=== PATIENT | male | born 1955 | race Caucasian/White ===

== ENCOUNTER → 2020-01-25 | Outpatient (CLI) | payer BC ==
--- NOTE | 2020-01-25 14:01 | US ---
EXAMINATION TYPE: US venous doppler duplex LE LT DATE OF EXAM: 01/25/2020 1:20 PM COMPARISON: NONE CLINICAL HISTORY: L97.222 Non-pressure chronic ulcer of left calf wi. Non-healing wounds bilateral lo wer legs SIDE PERFORMED: Bilateral TECHNIQUE: The lower extremity deep venous system is examined utilizing real time linear array sonog maricarmen with graded compression, doppler sonography and color-flow sonography. VESSELS IMAGED: External Iliac Vein (EIV) Common Femoral Vein Deep Femoral Vein Greater Saphenous Vein * Femoral Vein Popliteal Vein Small Saphenous Vein * Proximal Calf Veins (* superficial vessels) Right Leg: Negative for DVT Left Leg: Negative for DVT Grayscale, color doppler, spectral doppler imaging performed of the deep veins of the bilateral lower extremities. There is normal flow, compressibility, vascular waveforms. IMPRESSION: No ultrasound evidence for acute DVT in either lower extremity.
--- NOTE | 2020-01-26 10:26 | P.ARTDOP ---
Arterial Doppler LOWER EXTREMITY ARTERIAL DOPPLER: DATE OF SERVICE: 01/25/2020 Reason for study: Nonhealing leg ulcers bilaterally.. Doppler waveforms: Multiphasic bilaterally throughout. Pulse volume recording: []. Pressure gradients: None. Ankle-brachial indices: Greater than 1 bilaterally. Toe brachial indices: 0.71 on the right, 0.76 on the left Impression: Normal study.
== END | disposition home or self-care (01) ==
LOC: RADUSWWP 12:45
PROVIDERS: ATTEND Thoracic Surgery (Cardiothoracic Vascular Surgery)
DX: S81.811S Laceration without foreign body, right lower leg, sequela (principal); S81.812S Laceration without foreign body, left lower leg, sequela; T79.A22S Traumatic compartment syndrome of left lower extremity, sequela; T79.A21S Traumatic compartment syndrome of right lower extremity, sequela; L97.222 Non-pressure chronic ulcer of left calf with fat layer exposed; L97.221 Non-pressure chronic ulcer of left calf limited to breakdown of skin
CPT/HCPCS: 93922; 93970

== ENCOUNTER → 2020-03-13 | Outpatient (CLI) | payer BC ==
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
== END | disposition home or self-care (01) ==
LOC: RADUSWWP 10:55
PROVIDERS: ATTEND Thoracic Surgery (Cardiothoracic Vascular Surgery)
DX: L97.222 Non-pressure chronic ulcer of left calf with fat layer exposed (principal)

== ENCOUNTER 2020-08-28 13:49 | Inpatient (IN) | payer BC ==
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
[2020-08-28] MEDS ORDERED: VANCOMYCIN IV PER PHARMACY 1 EACH MISC MISCELLANE PRN (15:07)
[2020-08-28] MEDS ORDERED: HYDROmorphone 1 MG/ML 1 ML SYRINGE IVP STA (15:07)
[2020-08-28] MEDS ORDERED: SODIUM CHLORIDE 0.9% 1,000 ML IV STA ×2 (15:07→16:28)
[2020-08-28] MEDS ORDERED: HYDROmorphone 1 MG/ML 1 ML SYRINGE IVP PRN (15:07)
[2020-08-28] MEDS ORDERED: cefTRIAXone IN SWFI 1,000 MG/10 ML SYRINGE IVP STA (15:07)
[2020-08-28] MEDS ORDERED: VANCOMYCIN 2,000 MG in SODIUM CHLORIDE 0.9% 500 ML 500 ML IVPB STA (15:14)
[2020-08-28] MEDS ORDERED: VANCOMYCIN 2,000 MG in SODIUM CHLORIDE 0.9% 500 ML 500 ML IVPB SCH (15:15)
--- NOTE | 2020-08-28 15:16 | US ---
EXAMINATION TYPE: US venous doppler duplex LE RT DATE OF EXAM: 08/28/2020 3:04 PM COMPARISON: 01/25/2020 CLINICAL HISTORY: 65-year-old male DVT, right leg pain x couple months, patient on 2 blood thinners SIDE PERFORMED: Right TECHNIQUE: The lower extremity deep venous system is examined utilizing real time linear array sonog maricarmen with graded compression, doppler sonography and color-flow sonography. FINDINGS: VESSELS IMAGED: External Iliac Vein (EIV) Common Femoral Vein Deep Femoral Vein Greater Saphenous Vein * Femoral Vein Popliteal Vein Small Saphenous Vein * Proximal Calf Veins (* superficial vessels) Right Leg: Appears negative for DVT. Additional targeted scanning at the area of concern shows prominent subcutaneous edema. IMPRESSION: 1. No evidence for DVT within the right lower extremity imaged from the groin to the upper calf. 2. Additional targeted scanning along the right calf shows prominent subcutaneous edema.
[2020-08-28 15:44] LABS: Basophils % (A) 1 %; Eosinophils # (A) 0.2 k/uL (0-0.7); Eosinophils % (A) 2 %; HCT 46.6 % (39.0-53.0); Lymphocytes # (A) 1.2 k/uL (1.0-4.8); Lymphocytes % (A) 19 %; MCH 29.5 pg (25.0-35.0); MCHC 32.2 g/dL (31.0-37.0); MCV 91.8 fL (80.0-100.0); Mean Platelet Volume 7.4; Monocytes # (A) 0.5 k/uL (0-1.0); Monocytes % (A) 7 %; Neutrophils # (A) 4.6 k/uL (1.3-7.7); Neutrophils % (A) 69 %; Platelet Count 257 k/uL (150-450); RBC 5.08 m/uL (4.30-5.90); RDW 14.4 % (11.5-15.5); WBC 6.6 k/uL (3.8-10.6)
[2020-08-28 15:58] LABS: ALT 36 U/L (4-49); AST 40 U/L (17-59); African American GFR (CKD) >90 (>60 ml/min/1.73 sqM); Albumin 4.6 g/dL (3.5-5.0); Alkaline Phosphatase 44 U/L (38-126); Anion Gap 11 mmol/L; Blood Urea Nitrogen 16 mg/dL (9-20); Carbon Dioxide 24 mmol/L (22-30); Chloride 107 mmol/L (98-107); Creatine Kinase 121 U/L (55-170); Glucose 110 mg/dL (74-99); Magnesium 1.9 mg/dL (1.6-2.3); Non-African American GFR(CKD) >90 (>60 ml/min/1.73 sqM); Phosphorus 3.9 mg/dL (2.5-4.5); Potassium 3.7 mmol/L (3.5-5.1); Sodium 142 mmol/L (137-145); Total Bilirubin 0.4 mg/dL (0.2-1.3); Total Protein 8.1 g/dL (6.3-8.2)
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
[2020-08-28 18:00] LABS: Appearance,Urine Clear (Clear); Bilirubin,Urine Negative (Negative); Blood,Urine Negative (Negative); Color,Urine Yellow; Glucose,Urine (UA) Negative (Negative); Ketones,Urine Negative (Negative); Leukocyte Esterase,Urine Negative (Negative); Nitrite,Urine Negative (Negative); PH, Urine 5.5 (5.0-8.0); Protein,Urine Negative (Negative); Specific Gravity,Urine 1.039 (1.001-1.035); Urobilinogen,Urine <2.0 mg/dL (<2.0)
[2020-08-29] MEDS: RIVAROXABAN 20 MG TAB PO SCH ×2 (00:07→21:22)
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
[2020-08-29] MEDS ORDERED: METOPROLOL TARTRATE 50 MG TAB PO STA (00:14)
[2020-08-29] MEDS ORDERED: FENOFIBRATE 160 MG TAB PO STA (00:14)
[2020-08-29] MEDS: VANCOMYCIN 2,250 MG in SODIUM CHLORIDE 0.9% 500 ML 500 ML IVPB SCH ×2 (02:31→13:55)
[2020-08-29] MEDS: FOLIC ACID 1 MG TAB PO SCH (07:18)
[2020-08-29] MEDS: CLOPIDOGREL 75 MG TAB PO SCH (07:18)
[2020-08-29] MEDS: amLODIPine 10 MG TAB PO SCH (07:18)
[2020-08-29] MEDS: FUROSEMIDE 40 MG TAB PO SCH (07:18)
[2020-08-29] MEDS: lisinopriL 5 MG TAB PO SCH (07:19)
[2020-08-29] MEDS: METOPROLOL TARTRATE 50 MG TAB PO SCH ×2 (07:19→21:17)
[2020-08-29 09:15] LABS: African American GFR (CKD) 110.2 (60.0-200.0); Non-African American GFR(CKD) 95.1 (60.0-200.0)
[2020-08-29] MEDS ORDERED: RX INFO: IV CONTRAST WAS GIVEN 1 EACH MISC MISCELLANE PRN (12:32)
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
--- NOTE | 2020-08-29 14:14 | P.CONS ---
History of Present Illness - Reason for Consult Consult date: 08/29/20 wound care - History of Present Illness This is a 65-year-old patient who is known to the wound care center who previously had compartmental syndrome with fasciotomy. During treatment patient had a negative pressure wound VAC. At this time patient's skin is epithelialized with no open ulcerations. Review of Systems Review Of Systems: Constitutional: No fever, no chills, no night sweats. No weight change. No weakness, fatigue or lethargy. No daytime sleepiness. Integumentary:no wounds, no lesions. No rash or pruritus. No unusual bruising. No change in hair or nails. Past Medical History Past Medical History: Hyperlipidemia, Hypertension History of Any Multi-Drug Resistant Organisms: MRSA Year Discovered:: 2019 MDRO Source:: right leg Past Surgical History: Appendectomy, Heart Catheterization With Stent, Joint Replacement, Orthopedic Surgery Additional Past Surgical History / Comment(s): mutiple surgeries to right leg. Date of Last Stent Placement:: jul 19, 2020 Past Psychological History: No Psychological Hx Reported Smoking Status: Never smoker Past Alcohol Use History: Occasional Past Drug Use History: None Reported - Past Family History Mother Family Medical History: Diabetes Mellitus Additional Family Medical History / Comment(s): heart problems Father Additional Family Medical History / Comment(s): heart problems Medications and Allergies Home Medications Medication Instructions Recorded Confirmed Type Atorvastatin [Lipitor] 40 mg PO HS 08/28/20 08/28/20 History Cholecalciferol [Vitamin D3 (25 1,000 unit PO DAILY 08/28/20 08/28/20 History Mcg = 1000 Iu)] Clopidogrel Bisulfate [Plavix] 75 mg PO DAILY 08/28/20 08/28/20 History Fenofibrate Nanocrystallized 145 mg PO HS 08/28/20 08/28/20 History [Fenofibrate] Folic Acid 1 mg PO DAILY 08/28/20 08/28/20 History Furosemide [Lasix] 40 mg PO DAILY 08/28/20 08/28/20 History Metoprolol Tartrate [Lopressor] 50 mg PO HS 08/28/20 08/28/20 History Metoprolol Tartrate [Lopressor] 100 mg PO DAILY 08/28/20 08/28/20 History Multivitamins, Thera [Multivitamin 1 tab PO DAILY 08/28/20 08/28/20 History (formulary)] Potassium Chloride ER [K-Dur 10] 10 meq PO BID 08/28/20 08/28/20 History Rivaroxaban [Xarelto] 20 mg PO HS 08/28/20 08/28/20 History Tamsulosin HCl [Flomax] 0.4 mg PO DAILY 08/28/20 08/28/20 History amLODIPine [Norvasc] 10 mg PO DAILY 08/28/20 08/28/20 History lisinopriL [Zestril] 5 mg PO DAILY 08/28/20 08/28/20 History Allergies Allergy/AdvReac Type Severity Reaction Status Date / Time codeine Allergy Unknown Verified 08/28/20 16:56 sulfamethoxazole Allergy Unknown Verified 08/28/20 16:56 [From Bactrim] trimethoprim [From Bactrim] Allergy Unknown Verified 08/28/20 16:56 Physical Exam Vitals: Vital Signs Temp Pulse Pulse Resp BP BP Pulse Ox 08/29/20 13:29 70 173/94 08/29/20 07:00 98.3 F 63 16 183/100 98 08/29/20 02:30 97.0 F L 65 18 121/65 93 L 08/28/20 19:55 98.3 F 61 114/61 95 08/28/20 18:53 97.8 F 70 18 142/86 94 L 08/28/20 13:58 99.2 F 64 18 123/67 94 L Intake and Output 08/28/20 08/29/20 08/29/20 22:59 06:59 14:59 Intake Total 200 Balance 200 Intake: Intake, IV Titration 100 Amount Sodium Chloride 0.9% 1, 100 000 ml @ 130 mls/hr IV . Q7H42M [facility] Rx#:[id number] Oral 100 Other: # Voids 1 Weight 136.078 kg Physical exam: General Appearance: Alert, cooperative, no distress, appears stated age. Skin: No open ulcerations all other Skin color, texture, tugor normal, no rashes or lesions. Neurologic: Alert oriented x3 Results CBC & Chem 7: 08/28/20 15:20 08/29/20 06:20 Labs: Abnormal Lab Results - Last 24 Hours (Table) 08/28/20 08/28/20 Range/Units 15:20 15:20 Glucose 110 H (74-99) mg/dL Ur Specific [place] 1.039 H (1.001-1.035) Assessment and Plan (1) Cellulitis of right leg Current Visit: Yes Status: Acute Code(s): L03.115 - CELLULITIS OF RIGHT LOWER LIMB SNOMED Code(s): 985481785 Plan: Patient has no open ulcerations at this time. If he undergoes any surgical intervention that needs wound care please refer to the outpatient wound care center upon discharge. Thank you, for the consultation any questions please contact the wound care center DNP note has been reviewed and discussed with Dr. Perez and the impression and plan of care has been directed as dictated.
--- NOTE | 2020-08-29 14:29 | P.PN ---
Subjective Progress Note Date: 08/29/20 Patient was seen and examined. No acute events overnight. Patient reports increased swelling and excruciating pain along the medial side of his right calf. Reports that he had incision and debridement in that area with vascular surgery in the wound care clinic a few months ago. He denies any chest pain, shortness of breath or palpitations. No nausea or vomiting. No fever or chills. Objective - Vital Signs Vital signs: Vital Signs Temp 98.4 F 08/29/20 14:02 Pulse 70 08/29/20 14:02 Resp 20 08/29/20 14:02 BP 171/81 08/29/20 14:02 Pulse Ox 95 08/29/20 14:02 Intake & Output 08/28/20 08/29/20 08/29/20 18:59 06:59 18:59 Intake Total 200 Balance 200 Weight 136.078 kg 136.078 kg Intake: Intake, IV Titration 100 Amount Sodium Chloride 0.9% 1, 100 000 ml @ 130 mls/hr IV . Q7H42M [facility] Rx#:[id number] Oral 100 Other: # Voids 1 - Exam General: [non toxic], [no distress], [appears at stated age] Derm: [warm], [dry], [postsurgical scarring along the right calf, tenderness to palpation along the medial aspect, warmth to touch with slight erythema] Head: [atraumatic], [normocephalic], [symmetric] Eyes: [EOMI], [no lid lag], [anicteric sclera] Mouth: [no lip lesion], [mucus membranes moist] Cardiovascular: [S1S2 reg], [no murmur], [unable to palpate pulses in the right lower extremity due to edema] Lungs: [CTA bilateral], [no rhonchi, no rales] , [no accessory muscle use] Abdominal: [soft], [ nontender to palpation], [no guarding], [no appreciable organomegaly] Ext: [no gross muscle atrophy], [2+ edema right lower extremity], [no contractures] Neuro: [no focal neuro deficits] Psych: [Alert], [oriented], [appropriate affect] - Labs CBC & Chem 7: 08/28/20 15:20 08/29/20 06:20 Labs: Abnormal Lab Results - Last 24 Hours (Table) 08/28/20 08/28/20 Range/Units 15:20 15:20 Glucose 110 H (74-99) mg/dL Ur Specific [place] 1.039 H (1.001-1.035) Assessment and Plan Assessment: Right lower extremity tenderness with history of compartment syndrome and abscess -Vascular surgery consult - recommend CT angiogram of the right lower extremity -CT of the right lower extremity shows extensive subcutaneous edema in the medial and posterior gastrocnemius muscle -Continue with Vancomycin and Ceftriaxone for now (no leukocytosis, no fever, CRP negative) -Pain control -Follow blood cultures Chronic conditions: Hypertension, hyperlipidemia, coronary artery disease -Continue home medications DVT prophylaxis -Xarelto
--- NOTE | 2020-08-29 18:53 | CT ---
EXAMINATION TYPE: CT angio lower extremity RT DATE OF EXAM: 08/29/2020 COMPARISON: None HISTORY: RT lower extremity pain/swelling CT DLP: 1469.80 mGycm Automated exposure control for dose reduction was used. CONTRAST: Performed with IV Contrast, patient injected with 100 mL of Isovue 370. Multiple axial sections were obtained from the level of the mid abdominal aorta to the bottom of the feet with IV contrast and 3-D post processed images. There is contrast opacification of the abdominal aorta which has normal size. There is no aneurysm or dissection. There is arterial flow in the internal and external and common iliac arteries bilaterall y. There is penile implant noted. There is arterial flow in the superficial femoral artery and profun da femoris artery bilaterally. There is metal artifact from right knee prosthesis. This obscures the detail of the popliteal artery on the right side. There is arterial flow in the tibial arteries and t ibial artery trifurcations bilaterally. There is arterial flow in the anterior and posterior tibial a rtery at the ankle bilaterally. I see no evidence of hemodynamic stenosis. There is diffuse subcutaneous edema around the right lower leg extending to the ankle and the forefoo t. There is mild subcutaneous edema around the left ankle. IMPRESSION: Negative CT angiogram of the right leg. Exam limited at the level of the popliteal artery which is no t well evaluated due to metal artifact. No evidence for hemodynamic stenosis. Diffuse subcutaneous edema of the right lower leg as above. Mild subcutaneous edema around the left a nkle and lower tibia and fibula.
[2020-08-29] MEDS: FENOFIBRATE 160 MG TAB PO SCH (21:16)
[2020-08-29] MEDS: ATORVASTATIN 40 MG TAB PO SCH (21:16)
[2020-08-30] MEDS: VANCOMYCIN 2,250 MG in SODIUM CHLORIDE 0.9% 500 ML 500 ML IVPB SCH ×2 (02:51→15:22)
[2020-08-30] MEDS: FUROSEMIDE 40 MG TAB PO SCH (09:46)
[2020-08-30] MEDS: METOPROLOL TARTRATE 50 MG TAB PO SCH ×2 (09:46→20:10)
[2020-08-30] MEDS: amLODIPine 10 MG TAB PO SCH (09:46)
[2020-08-30] MEDS: lisinopriL 5 MG TAB PO SCH (09:46)
[2020-08-30] MEDS: CLOPIDOGREL 75 MG TAB PO SCH (09:46)
[2020-08-30] MEDS: FOLIC ACID 1 MG TAB PO SCH (09:46)
[2020-08-30 09:47] LABS: African American GFR (CKD) 110.2 (60.0-200.0); Non-African American GFR(CKD) 95.1 (60.0-200.0)
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
[2020-08-30] MEDS ORDERED: VANCOMYCIN TROUGH DUE 1 EACH MISC MISCELLANE ONE (13:30)
--- NOTE | 2020-08-30 15:04 | P.PN ---
Subjective Progress Note Date: 08/30/20 Patient was seen and examined. No acute events overnight. Patient reports no changes in the swelling and pain along the medial side of his right calf. Reports that he had incision and debridement in that area with vascular surgery in the wound care clinic a few months ago. He denies any chest pain, shortness of breath or palpitations. No nausea or vomiting. No fever or chills. Objective - Vital Signs Vital signs: Vital Signs Temp 98.3 F 08/30/20 12:17 Pulse 57 L 08/30/20 12:17 Resp 19 08/30/20 12:17 BP 151/80 08/30/20 12:17 Pulse Ox 98 08/30/20 12:17 Intake & Output 08/29/20 08/30/20 08/30/20 18:59 06:59 18:59 Intake Total 520 550 50 Output Total 300 Balance 220 550 50 Intake: Intake, IV Titration 520 550 50 Amount Sodium Chloride 0.9% 1, 20 000 ml @ 130 mls/hr IV . Q7H42M [facility] Rx#:[id number] Vancomycin 2,250 mg In 500 500 Sodium Chloride 0.9% 500 ml 500 ml @ 167 mls/hr IVPB Q12H [facility] Rx#: [id number] cefTRIAXone 1 gm In 50 50 Sodium Chloride 0.9% 50 ml @ 100 mls/hr IVPB Q12H [facility] Rx#:[id number] Output: Urine 300 Other: Voiding Method Toilet Urinal # Voids 1 1 - Exam General: [non toxic], [no distress], [appears at stated age] Derm: [warm], [dry], [postsurgical scarring along the right calf, tenderness to palpation along the medial aspect, warmth to touch with slight erythema] Head: [atraumatic], [normocephalic], [symmetric] Eyes: [EOMI], [no lid lag], [anicteric sclera] Mouth: [no lip lesion], [mucus membranes moist] Cardiovascular: [S1S2 reg], [no murmur], [unable to palpate pulses in the right lower extremity due to edema] Lungs: [CTA bilateral], [no rhonchi, no rales] , [no accessory muscle use] Abdominal: [soft], [ nontender to palpation], [no guarding], [no appreciable organomegaly] Ext: [no gross muscle atrophy], [2+ edema right lower extremity], [no contractures] Neuro: [no focal neuro deficits] Psych: [Alert], [oriented], [appropriate affect] - Labs CBC & Chem 7: 08/28/20 15:20 08/30/20 05:17 Labs: Microbiology - Last 24 Hours (Table) 08/28/20 15:35 Blood Culture - Preliminary Blood No Growth after 24 hours Assessment and Plan Assessment: Right lower extremity tenderness with history of compartment syndrome and abscess -Vascular surgery consult - recommend JUAN JOSE wraps for LE swelling as CTA shows no arterial occlusion -CT of the right lower extremity shows extensive subcutaneous edema in the medial and posterior gastrocnemius muscle -Continue with Vancomycin and Ceftriaxone for now (no leukocytosis, no fever, CRP negative) -Pain control -Follow blood cultures Chronic conditions: Hypertension, hyperlipidemia, coronary artery disease -Continue home medications DVT prophylaxis -Xarelto
[2020-08-30] MEDS: LIDOCAINE 5% PATCH TOPICAL SCH (15:40)
[2020-08-30] MEDS: FENOFIBRATE 160 MG TAB PO SCH (20:10)
[2020-08-30] MEDS: RIVAROXABAN 20 MG TAB PO SCH (20:10)
[2020-08-30] MEDS: ATORVASTATIN 40 MG TAB PO SCH (20:10)
[2020-08-31] MEDS: VANCOMYCIN 2,250 MG in SODIUM CHLORIDE 0.9% 500 ML 500 ML IVPB SCH (02:06)
[2020-08-31 05:41] LABS: Basophils % (A) 1 %; Eosinophils # (A) 0.2 k/uL (0-0.7); Eosinophils % (A) 4 %; HCT 43.3 % (39.0-53.0); HGB 13.6 gm/dL (13.0-17.5); Lymphocytes # (A) 0.9 k/uL (1.0-4.8); Lymphocytes % (A) 19 %; MCH 29.2 pg (25.0-35.0); MCHC 31.4 g/dL (31.0-37.0); Mean Platelet Volume 7.3; Monocytes # (A) 0.4 k/uL (0-1.0); Monocytes % (A) 9 %; Neutrophils # (A) 2.9 k/uL (1.3-7.7); Neutrophils % (A) 64 %; Platelet Count 209 k/uL (150-450); RBC 4.66 m/uL (4.30-5.90); RDW 14.5 % (11.5-15.5); WBC 4.6 k/uL (3.8-10.6)
[2020-08-31 07:58] VITALS: RESP 14; TEMP 97.9
[2020-08-31] MEDS: FUROSEMIDE 40 MG TAB PO SCH (08:19)
[2020-08-31] MEDS: LIDOCAINE 5% PATCH TOPICAL SCH (08:19)
[2020-08-31] MEDS: METOPROLOL TARTRATE 50 MG TAB PO SCH (08:19)
[2020-08-31] MEDS: FOLIC ACID 1 MG TAB PO SCH (08:20)
[2020-08-31] MEDS: amLODIPine 10 MG TAB PO SCH (08:20)
[2020-08-31] MEDS: CLOPIDOGREL 75 MG TAB PO SCH (08:20)
[2020-08-31] MEDS: lisinopriL 5 MG TAB PO SCH (08:20)
[2020-08-31 09:33] LABS: Anion Gap 8.3 mmol/L (4.00-12.00); BUN/Creat Ratio 16.67 Ratio (12.00-20.00); Calcium 9.1 mg/dL (8.7-10.3); Carbon Dioxide 25.7 mmol/L (21.6-31.8); Non-African American GFR(CKD) 90.6 (60.0-200.0); Potassium 3.7 mmol/L (3.5-5.5)
[2020-08-31 09:50] VITALS: BP 148/71; PULSE 57
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
== END 2020-08-31 11:00 | disposition home or self-care (01) | DRG 603 ==
LOC: EC 13:49 → 4SSUR 16:28 → 6NMEDSUR 08-29 13:16
PROVIDERS: ADMIT Internal Medicine; ATTEND Internal Medicine
DX: L03.115 Cellulitis of right lower limb (principal); Z68.41 Body mass index [BMI] 40.0-44.9, adult; E66.01 Morbid (severe) obesity due to excess calories; T79.A21D Traumatic compartment syndrome of right lower extremity, subsequent encounter; E78.5 Hyperlipidemia, unspecified; I10 Essential (primary) hypertension; I25.10 Atherosclerotic heart disease of native coronary artery without angina pectoris; Z79.02 Long term (current) use of antithrombotics/antiplatelets; Z79.01 Long term (current) use of anticoagulants; Z79.899 Other long term (current) drug therapy; Z98.890 Other specified postprocedural states; Z86.14 Personal history of Methicillin resistant Staphylococcus aureus infection; Z95.5 Presence of coronary angioplasty implant and graft; Z87.19 Personal history of other diseases of the digestive system; Z90.49 Acquired absence of other specified parts of digestive tract; Z96.60 Presence of unspecified orthopedic joint implant; Z88.5 Allergy status to narcotic agent; Z88.2 Allergy status to sulfonamides; Z83.3 Family history of diabetes mellitus; Z82.49 Family history of ischemic heart disease and other diseases of the circulatory system; V86.92XD Unspecified occupant of snowmobile injured in nontraffic accident, subsequent encounter
CPT/HCPCS: 36415; 80048; 80053; 80202; 81003; 82550; 82553; 82565; 83735; 84100; 84145; 85025; 85652; 86140; 87040; 96365; 96366; 96375; 99285

== ENCOUNTER 2020-10-16 02:48 | Emergency (ER) | payer BC ==
[2020-10-16 02:56] VITALS: RESP 18; TEMP 98.2
[2020-10-16] MEDS ORDERED: OXYMETAZOLINE 0.05% NASL SPRAY 1 SPRAY BOTTLE NASAL STA (03:02)
[2020-10-16] MEDS ORDERED: cloNIDine HCL 0.2 MG TAB PO STA (03:02)
--- NOTE | 2020-10-16 03:25 | ED ---
ENT HPI - General Chief complaint: ENT Stated complaint: Nose bleed,Elevated BP Time Seen by Provider: 10/16/20 02:53 Source: patient, RN notes reviewed, old records reviewed Mode of arrival: ambulatory Limitations: no limitations - History of Present Illness Initial comments: This is a 65-year-old male DF for evaluation patient Dese for evaluation rega rding bilateral nares. Bilateral no swelling. Patient has persistent bleeding from both nostrils. History of same bleeding for the last 4 nights. MD complaint: epistaxis (BL) -: days(s) Location: nose Severity: severe Severity scale (1-10): 9 Consistency: constant Improves with: none Worsens with: none Context-Epistaxis: warfarin use (eliquis) Context- Ear: recent illness Associated Symptoms: other (none) - Related Data Home Medications Medication Instructions Recorded Confirmed Atorvastatin [Lipitor] 40 mg PO HS 08/28/20 10/16/20 Cholecalciferol [Vitamin D3 (25 1,000 unit PO DAILY 08/28/20 10/16/20 Mcg = 1000 Iu)] Clopidogrel Bisulfate [Plavix] 75 mg PO DAILY 08/28/20 10/16/20 Fenofibrate Nanocrystallized 145 mg PO HS 08/28/20 10/16/20 [Fenofibrate] Folic Acid 1 mg PO DAILY 08/28/20 10/16/20 Furosemide [Lasix] 40 mg PO DAILY 08/28/20 10/16/20 Metoprolol Tartrate [Lopressor] 50 mg PO HS 08/28/20 10/16/20 Metoprolol Tartrate [Lopressor] 100 mg PO DAILY 08/28/20 10/16/20 Multivitamins, Thera [Multivitamin 1 tab PO DAILY 08/28/20 10/16/20 (formulary)] Potassium Chloride ER [K-Dur 10] 10 meq PO BID 08/28/20 10/16/20 Rivaroxaban [Xarelto] 20 mg PO HS 08/28/20 10/16/20 Tamsulosin HCl [Flomax] 0.4 mg PO DAILY 08/28/20 10/16/20 amLODIPine [Norvasc] 10 mg PO DAILY 08/28/20 10/16/20 lisinopriL [Zestril] 5 mg PO BID 10/26/20 12/14/20 Vitamin E 1,000 unit PO DAILY 10/16/20 10/16/20 Allergies Allergy/AdvReac Type Severity Reaction Status Date / Time codeine Allergy Swelling Verified 10/16/20 09:28 sulfamethoxazole Allergy Rash/Hives Verified 10/16/20 09:28 [From Bactrim] trimethoprim [From Bactrim] Allergy Rash/Hives Verified 10/16/20 09:28 Review of Systems ROS Statement: Those systems with pertinent positive or pertinent negative responses have been documented in the HPI. ROS Other: All systems not noted in ROS Statement are negative. Past Medical History Past Medical History: Hyperlipidemia, Hypertension History of Any Multi-Drug Resistant Organisms: MRSA Date of last positivie culture/infection: 2019 MDRO Source:: right leg Past Surgical History: Appendectomy, Heart Catheterization With Stent, Joint Replacement, Orthopedic Surgery Additional Past Surgical History / Comment(s): mutiple surgeries to right leg. Date of Last Stent Placement:: jul 19, 2020 Past Psychological History: No Psychological Hx Reported Smoking Status: Never smoker Past Alcohol Use History: Occasional Past Drug Use History: None Reported - Past Family History Mother Family Medical History: Diabetes Mellitus Additional Family Medical History / Comment(s): heart problems Father Additional Family Medical History / Comment(s): heart problems General Exam - General Exam Comments Initial Comments: BL nare bleeding Limitations: no limitations General appearance: alert, in no apparent distress Head exam: Present: atraumatic, normocephalic, normal inspection Eye exam: Present: normal appearance, PERRL, EOMI. Absent: scleral icterus, conjunctival injection, periorbital swelling ENT exam: Present: normal exam, mucous membranes moist Neck exam: Present: normal inspection. Absent: tenderness, meningismus, lymphadenopathy Respiratory exam: Present: normal lung sounds bilaterally. Absent: respiratory distress, wheezes, rales, rhonchi, stridor Cardiovascular Exam: Present: regular rate, normal rhythm, normal heart sounds. Absent: systolic murmur, diastolic murmur, rubs, gallop, clicks GI/Abdominal exam: Present: soft, normal bowel sounds. Absent: distended, tenderness, guarding, rebound, rigid Extremities exam: Present: normal inspection, full ROM, normal capillary refill. Absent: tenderness, pedal edema, joint swelling, calf tenderness Back exam: Present: normal inspection Neurological exam: Present: alert, oriented X3, CN II-XII intact Psychiatric exam: Present: normal affect, normal mood Skin exam: Present: warm, dry, intact, normal color. Absent: rash Course Vital Signs 10/16/20 10/16/20 10/16/20 02:51 03:13 03:27 Temperature 98.2 F Pulse Rate 61 60 Respiratory 18 18 Rate Blood Pressure 187/87 157/81 156/86 O2 Sat by Pulse 98 97 Oximetry 10/16/20 04:19 Temperature 98.2 F Pulse Rate 60 Respiratory 18 Rate Blood Pressure 156/90 O2 Sat by Pulse 95 Oximetry - Reevaluation(s) Reevaluation #1: Medical record is reviewed Patient has significant improvement in symptoms Patient has no recent change in complaints Patient and mother informed of results and questions have been answered Patient feels good for discharge Medical Decision Making - Medical Decision Making 62 female persistent bilateral epistaxis. Patient has severe pain with placement of Merocel but patient's bleeding is stopped and can be discharged home Disposition Clinical Impression: Epistaxis Disposition: HOME SELF-CARE Condition: Good Instructions (If sedation given, give patient instructions): Nosebleed (ED) Is patient prescribed a controlled substance at d/c from ED?: No Referrals: Alan Calix MD [Primary Care Provider] - 1-2 days
[2020-10-16 03:33] VITALS: PULSE 60
[2020-10-16 04:21] VITALS: BP 156/90
== END 2020-10-16 04:21 | disposition home or self-care (01) ==
LOC: EC 02:48
DX: R04.0 Epistaxis (principal); E78.5 Hyperlipidemia, unspecified; I10 Essential (primary) hypertension; Z79.899 Other long term (current) drug therapy; Z79.02 Long term (current) use of antithrombotics/antiplatelets; Z79.01 Long term (current) use of anticoagulants; Z88.2 Allergy status to sulfonamides; Z88.1 Allergy status to other antibiotic agents; Z88.5 Allergy status to narcotic agent; Z95.5 Presence of coronary angioplasty implant and graft; Z86.14 Personal history of Methicillin resistant Staphylococcus aureus infection
CPT/HCPCS: 30901; 99283

== ENCOUNTER 2020-10-16 08:36 | Emergency (ER) | payer BC ==
[2020-10-16 08:44] VITALS: TEMP 98.6
[2020-10-16] MEDS ORDERED: HYDROmorphone 1 MG/ML 1 ML SYRINGE IVP STA ×2 (09:07→10:18)
[2020-10-16] MEDS ORDERED: ONDANSETRON 4 MG/2 ML VIAL IVP STA (09:07)
[2020-10-16 09:37] LABS: Basophils % (A) 0 %; Eosinophils # (A) 0.1 k/uL (0-0.7); Eosinophils % (A) 2 %; HCT 44.2 % (39.0-53.0); HGB 14.4 gm/dL (13.0-17.5); Lymphocytes # (A) 0.8 k/uL (1.0-4.8); Lymphocytes % (A) 13 %; MCH 29.6 pg (25.0-35.0); MCHC 32.6 g/dL (31.0-37.0); MCV 90.7 fL (80.0-100.0); Mean Platelet Volume 7.2; Monocytes # (A) 0.4 k/uL (0-1.0); Monocytes % (A) 6 %; Neutrophils # (A) 4.9 k/uL (1.3-7.7); Neutrophils % (A) 76 %; Platelet Count 306 k/uL (150-450); RBC 4.87 m/uL (4.30-5.90); RDW 13.6 % (11.5-15.5); WBC 6.4 k/uL (3.8-10.6)
--- NOTE | 2020-10-16 09:47 | ED ---
General Adult HPI - General Chief complaint: ENT Stated complaint: Nose bleed Time Seen by Provider: 10/16/20 08:57 Source: patient, RN notes reviewed Mode of arrival: ambulatory Limitations: no limitations - History of Present Illness Initial comments: This is a 65-year-old male presents emergency Department with chief complaint of epistaxis, severe facial pain. Patient states that it started last night in which he waited at home for 2 hours. Patient states that that he did finally come emergency department and which he had bilateral nasal packing. He states he had bleeding from his right nostril greater than his left. Patient states that he went home the pain worse along with the bleeding. Patient is found to be hypertensive on his prior ER visit. He was given clonidine. Patient takes Xarelto for history of A. fib, a flutter and he states that he is on Plavix for history of cardiac stents. Patient states his pain is much different than his her head. Patient denies any traumatic fall patient states that he normally has some bleeding in the morning when he blows his nose but this was much worse than usual. - Related Data Home Medications Medication Instructions Recorded Confirmed Atorvastatin [Lipitor] 40 mg PO HS 08/28/20 10/16/20 Cholecalciferol [Vitamin D3 (25 1,000 unit PO DAILY 08/28/20 10/16/20 Mcg = 1000 Iu)] Clopidogrel Bisulfate [Plavix] 75 mg PO DAILY 08/28/20 10/16/20 Fenofibrate Nanocrystallized 145 mg PO HS 08/28/20 10/16/20 [Fenofibrate] Folic Acid 1 mg PO DAILY 08/28/20 10/16/20 Furosemide [Lasix] 40 mg PO DAILY 08/28/20 10/16/20 Metoprolol Tartrate [Lopressor] 50 mg PO HS 08/28/20 10/16/20 Metoprolol Tartrate [Lopressor] 100 mg PO DAILY 08/28/20 10/16/20 Multivitamins, Thera [Multivitamin 1 tab PO DAILY 08/28/20 10/16/20 (formulary)] Potassium Chloride ER [K-Dur 10] 10 meq PO BID 08/28/20 10/16/20 Rivaroxaban [Xarelto] 20 mg PO HS 08/28/20 10/16/20 Tamsulosin HCl [Flomax] 0.4 mg PO DAILY 08/28/20 10/16/20 amLODIPine [Norvasc] 10 mg PO DAILY 08/28/20 10/16/20 lisinopriL [Zestril] 5 mg PO BID 08/28/20 10/16/20 Vitamin E 1,000 unit PO DAILY 10/16/20 10/16/20 Allergies Allergy/AdvReac Type Severity Reaction Status Date / Time codeine Allergy Swelling Verified 10/16/20 09:28 sulfamethoxazole Allergy Rash/Hives Verified 10/16/20 09:28 [From Bactrim] trimethoprim [From Bactrim] Allergy Rash/Hives Verified 10/16/20 09:28 Review of Systems ROS Statement: Those systems with pertinent positive or pertinent negative responses have been documented in the HPI. ROS Other: All systems not noted in ROS Statement are negative. Past Medical History Past Medical History: Hyperlipidemia, Hypertension History of Any Multi-Drug Resistant Organisms: MRSA Date of last positivie culture/infection: 2019 MDRO Source:: right leg Past Surgical History: Appendectomy, Heart Catheterization With Stent, Joint Replacement, Orthopedic Surgery Additional Past Surgical History / Comment(s): mutiple surgeries to right leg. Date of Last Stent Placement:: jul 19, 2020 Past Psychological History: No Psychological Hx Reported Smoking Status: Never smoker Past Alcohol Use History: Occasional Past Drug Use History: None Reported - Past Family History Mother Family Medical History: Diabetes Mellitus Additional Family Medical History / Comment(s): heart problems Father Additional Family Medical History / Comment(s): heart problems General Exam Limitations: no limitations General appearance: alert, in no apparent distress Head exam: Present: atraumatic, normocephalic, normal inspection Eye exam: Present: normal appearance, PERRL, EOMI. Absent: scleral icterus, conjunctival injection, periorbital swelling ENT exam: Present: normal oropharynx, mucous membranes moist, TM's normal bilaterally, normal external ear exam, other (Blood-filled right nostril Merisel, packing noted in the left nostril minimal blood) Neck exam: Present: normal inspection, full ROM. Absent: tenderness, meningismus, lymphadenopathy Respiratory exam: Present: normal lung sounds bilaterally. Absent: respiratory distress, wheezes, rales, rhonchi, stridor Cardiovascular Exam: Present: regular rate, normal rhythm, normal heart sounds. Absent: systolic murmur, diastolic murmur, rubs, gallop, clicks Neurological exam: Present: alert, oriented X3, CN II-XII intact, reflexes normal. Absent: motor sensory deficit Skin exam: Present: warm, dry, intact, normal color. Absent: rash Course Vital Signs 10/16/20 10/16/20 08:42 08:54 Temperature 98.6 F Pulse Rate 61 Respiratory 18 Rate Blood Pressure 192/88 161/78 O2 Sat by Pulse 97 Oximetry Medical Decision Making - Medical Decision Making 65-year-old presented for epistaxis recheck. Patient had packing removed after increasing pressure. Patient has severe pain which on CT shows evidence of sinusitis from blood. Patient's Tegretol removed. Minimal bleeding today x-ray was atomized in his nostril bilaterally patient was observed with no rebleeding. Patient has been observed in emergency room for 3 hours. Patient's advised to hold Eliquis he will follow with ENT if no improvement and return for any worsening change in symptoms patient agrees to plan of discomfort with plan. - Lab Data Result diagrams: 10/16/20 09:28 Lab Results 10/16/20 Range/Units 09:28 WBC 6.4 (3.8-10.6) k/uL RBC 4.87 (4.30-5.90) m/uL Hgb 14.4 (13.0-17.5) gm/dL Hct 44.2 (39.0-53.0) % MCV 90.7 (80.0-100.0) fL MCH 29.6 (25.0-35.0) pg MCHC 32.6 (31.0-37.0) g/dL RDW 13.6 (11.5-15.5) % Plt Count 306 (150-450) k/uL MPV 7.2 Neutrophils % 76 % Lymphocytes % 13 % Monocytes % 6 % Eosinophils % 2 % Basophils % 0 % Neutrophils # 4.9 (1.3-7.7) k/uL Lymphocytes # 0.8 L (1.0-4.8) k/uL Monocytes # 0.4 (0-1.0) k/uL Eosinophils # 0.1 (0-0.7) k/uL Basophils # 0.0 (0-0.2) k/uL Disposition Clinical Impression: Epistaxis Disposition: HOME SELF-CARE Condition: Stable Instructions (If sedation given, give patient instructions): Nosebleed (ED) Additional Instructions: Please return to the Emergency Department if symptoms worsen or any other concerns. Is patient prescribed a controlled substance at d/c from ED?: No Referrals: Alan Calix MD [Primary Care Provider] - 1-2 days Ricardo Ross MD [STAFF PHYSICIAN] - 1-2 days Time of Disposition: 11:57
--- NOTE | 2020-10-16 10:08 | CT ---
EXAMINATION TYPE: CT brain wo con, CT sinus wo con DATE OF EXAM: 10/16/2020 HISTORY: facial pain and nose bleed. CT DLP: 1134.4 mGycm. Automated Exposure Control for Dose Reduction was Utilized. TECHNIQUE: CT scan of the head and sinuses are performed without contrast. COMPARISON: None. FINDINGS: There is no acute intracranial hemorrhage or midline shift identified. There is diffuse v entricular and sulcal prominence consistent with diffuse age-related cerebral atrophy. There is low- attenuation in the periventricular white matter consistent with chronic small vessel ischemic change. The calvarium is intact. Mild mucosal thickening in the bilateral maxillary sinuses with some dependent fluid. More prominent dependent fluid in the bilateral sphenoid sinuses. There are hypoplastic or nonformed bilateral front al sinuses. Some patchy fluid in the inferior ethmoid sinuses bilaterally. The ostiomeatal complex is occluded by secretions in the maxillary antra bilaterally with prominent secretions throughout the t urbinates. No bony destruction is evident. IMPRESSION: 1. No acute intracranial hemorrhage or midline shift. There is mild diffuse age-related cerebral atr ophy and chronic small vessel ischemic change noted. 2. Abnormal fluid filling turbinates bilaterally may be causing fluid or retained secretions in the b ilateral paranasal sinuses.
[2020-10-16] MEDS ORDERED: TRANEXAMIC ACID 1,000 MG/10 ML VIAL IRRIGATION ONE (10:58)
[2020-10-16 12:18] VITALS: BP 98/65; PULSE 56; RESP 17
== END 2020-10-16 12:17 | disposition home or self-care (01) ==
LOC: EC 08:36
DX: R04.0 Epistaxis (principal); J32.9 Chronic sinusitis, unspecified; I48.91 Unspecified atrial fibrillation; E78.5 Hyperlipidemia, unspecified; I10 Essential (primary) hypertension; Z79.01 Long term (current) use of anticoagulants; Z79.02 Long term (current) use of antithrombotics/antiplatelets; Z79.899 Other long term (current) drug therapy; Z88.1 Allergy status to other antibiotic agents; Z88.2 Allergy status to sulfonamides; Z88.5 Allergy status to narcotic agent; Z86.14 Personal history of Methicillin resistant Staphylococcus aureus infection; Z90.49 Acquired absence of other specified parts of digestive tract; Z95.5 Presence of coronary angioplasty implant and graft
CPT/HCPCS: 36415; 85025; 70450; 70486; 99284; 96374; 96375; 96376; J2405; J1170

== ENCOUNTER 2020-12-28 14:24 | Emergency (ER) | payer BC, OTHER ==
[2020-12-28 14:29] VITALS: TEMP 98.8
[2020-12-28 15:13] LABS: Basophils % (A) 1 %; Eosinophils # (A) 0.2 k/uL (0-0.7); Eosinophils % (A) 3 %; HGB 14.2 gm/dL (13.0-17.5); Lymphocytes # (A) 0.8 k/uL (1.0-4.8); Lymphocytes % (A) 14 %; MCHC 32.4 g/dL (31.0-37.0); MCV 89.5 fL (80.0-100.0); Mean Platelet Volume 7.2; Monocytes # (A) 0.4 k/uL (0-1.0); Monocytes % (A) 7 %; Neutrophils # (A) 4.4 k/uL (1.3-7.7); Neutrophils % (A) 75 %; Platelet Count 207 k/uL (150-450); RBC 4.91 m/uL (4.30-5.90); RDW 14.8 % (11.5-15.5); WBC 5.8 k/uL (3.8-10.6)
[2020-12-28 15:22] LABS: ALT 36 U/L (4-49); AST 39 U/L (17-59); African American GFR (CKD) >90 (>60 ml/min/1.73 sqM); Albumin 4.1 g/dL (3.5-5.0); Alkaline Phosphatase 35 U/L (38-126); Anion Gap 8 mmol/L; Blood Urea Nitrogen 18 mg/dL (9-20); Calcium 9.4 mg/dL (8.4-10.2); Carbon Dioxide 27 mmol/L (22-30); Chloride 106 mmol/L (98-107); Glucose 118 mg/dL (74-99); Non-African American GFR(CKD) >90 (>60 ml/min/1.73 sqM); Potassium 3.9 mmol/L (3.5-5.1); Sodium 141 mmol/L (137-145); Total Bilirubin 0.5 mg/dL (0.2-1.3); Total Protein 7.2 g/dL (6.3-8.2)
[2020-12-28 15:29] LABS: RBC,Urine >182 /hpf (0-5); WBC,Urine 44 /hpf (0-5)
[2020-12-28] MEDS ORDERED: CEPHALEXIN 500MG STARTER PACK 4 CAP BTL PO STA (15:32)
--- NOTE | 2020-12-28 15:34 | ED ---
Male Urogenital HPI - General Chief complaint: Urogenital Stated complaint: urinary retention Time Seen by Provider: 12/28/20 14:41 Source: patient Mode of arrival: ambulatory Limitations: no limitations - History of Present Illness Initial comments: 65-year-old male presenting today for urinary retention. Patient states that he has had hematuria for the past few months. He states he had a cystoscopy about 3 weeks ago with biopsy states he has some increased on-off bleeding since. Patient states he did have an episode of hematuria last night--patient states he does not really urinate for the past 14 hours he states he did have radiation to his prostate and has been told he has urethral strictures. Patient states he is not sure if this is the cause. Patient denies any upper abdomen pain he states he has midline lower abdominal pressure. He denies a fevers chills general malaise. Patient states that he does take anticoagulation therapy. She has no additional complaints or concerns he appears well nontoxic in good spirits upon arrival - Related Data Home Medications Medication Instructions Recorded Confirmed Atorvastatin [Lipitor] 40 mg PO HS 08/28/20 10/16/20 Cholecalciferol [Vitamin D3 (25 1,000 unit PO DAILY 08/28/20 10/16/20 Mcg = 1000 Iu)] Clopidogrel Bisulfate [Plavix] 75 mg PO DAILY 08/28/20 10/16/20 Fenofibrate Nanocrystallized 145 mg PO HS 08/28/20 10/16/20 [Fenofibrate] Folic Acid 1 mg PO DAILY 08/28/20 10/16/20 Furosemide [Lasix] 40 mg PO DAILY 08/28/20 10/16/20 Metoprolol Tartrate [Lopressor] 50 mg PO HS 08/28/20 10/16/20 Metoprolol Tartrate [Lopressor] 100 mg PO DAILY 08/28/20 10/16/20 Multivitamins, Thera [Multivitamin 1 tab PO DAILY 08/28/20 10/16/20 (formulary)] Potassium Chloride ER [K-Dur 10] 10 meq PO BID 08/28/20 10/16/20 Rivaroxaban [Xarelto] 20 mg PO HS 08/28/20 10/16/20 Tamsulosin HCl [Flomax] 0.4 mg PO DAILY 08/28/20 10/16/20 amLODIPine [Norvasc] 10 mg PO DAILY 08/28/20 10/16/20 lisinopriL [Zestril] 5 mg PO BID 08/28/20 10/16/20 Vitamin E 1,000 unit PO DAILY 10/16/20 10/16/20 Previous Rx's Medication Instructions Recorded Cephalexin [Keflex] 500 mg PO Q6HR 5 Days #20 cap 12/28/20 Allergies Allergy/AdvReac Type Severity Reaction Status Date / Time codeine Allergy Swelling Verified 10/16/20 09:28 sulfamethoxazole Allergy Rash/Hives Verified 10/16/20 09:28 [From Bactrim] trimethoprim [From Bactrim] Allergy Rash/Hives Verified 10/16/20 09:28 Review of Systems ROS Statement: Those systems with pertinent positive or pertinent negative responses have been documented in the HPI. ROS Other: All systems not noted in ROS Statement are negative. Past Medical History Past Medical History: Hyperlipidemia, Hypertension Additional Past Medical History / Comment(s): polycystic kidney diseased, bladde r CA biopsy. History of Any Multi-Drug Resistant Organisms: MRSA Date of last positivie culture/infection: 2019 MDRO Source:: right leg Past Surgical History: Appendectomy, Heart Catheterization With Stent, Joint Replacement, Orthopedic Surgery Additional Past Surgical History / Comment(s): mutiple surgeries to right leg. Date of Last Stent Placement:: jul 19, 2020 Past Psychological History: No Psychological Hx Reported Smoking Status: Never smoker Past Alcohol Use History: Occasional Past Drug Use History: None Reported - Past Family History Mother Family Medical History: Diabetes Mellitus Additional Family Medical History / Comment(s): heart problems Father Additional Family Medical History / Comment(s): heart problems General Exam - General Exam Comments Initial Comments: General: The patient is awake and alert, in no distress= Eye: +3mm pupils are equal, round and reactive to light, extra-ocular movements are intact. No nystagmus. There is normal conjunctiva bilaterally. No signs of icterus. Ears, nose, mouth and throat: There are moist mucous membranes and no oral lesions. Neck: The neck is supple, there is no tenderness or JVD. Cardiovascular: There is a regular rate and rhythm. No murmur, rub or gallop is appreciated. Respiratory: Lungs are clear to auscultation, respirations are non-labored, breath sounds are equal. No wheezes, stridor, rales, or rhonchi. Gastrointestinal:Soft, non-distended, non-tender abdomen without masses or organomegaly noted. There is no rebound or guarding present. Musculoskeletal: Normal ROM, no tenderness. Strength 5/5. Sensation intact. Pulses equal bilaterally 2+. Neurological: A&O x 3. CN II-XII intact grossly, There are no obvious motor or sensory deficits. Coordination appears grossly intact. Speech is normal. Skin: Skin is warm and dry and no rashes or lesions are noted. Psychiatric: Cooperative, appropriate mood & affect, normal judgment. Limitations: no limitations Course Vital Signs 12/28/20 12/28/20 14:26 16:25 Temperature 98.8 F Pulse Rate 74 84 Respiratory 18 20 Rate Blood Pressure 196/91 165/89 O2 Sat by Pulse 97 99 Oximetry Medical Decision Making - Medical Decision Making Light red blood in haider catheter after placement, pt had significnat urinary retnetion > 600cc. There is significnatly more urine than blood, no clotting. patient hgb stable. hematuria ongoing x months. patient appear well nontoxic at this time we recommend urology f/u. oral abx. pcp f/u for repeat hgb friday and return for worsening bleeding/nonflowing catheter/abdominal pain/fevers /lightheaded or any other concerning symptoms. discussed case wt Dr. Gordon who is agreeable to this care plan and discharge. - Lab Data Result diagrams: 12/28/20 15:00 12/28/20 15:00 Lab Results 12/28/20 12/28/20 12/28/20 Range/Units 15:00 15:00 15:00 WBC 5.8 (3.8-10.6) k/uL RBC 4.91 (4.30-5.90) m/uL Hgb 14.2 (13.0-17.5) gm/dL Hct 44.0 (39.0-53.0) % MCV 89.5 (80.0-100.0) fL MCH 29.0 (25.0-35.0) pg MCHC 32.4 (31.0-37.0) g/dL RDW 14.8 (11.5-15.5) % Plt Count 207 (150-450) k/uL MPV 7.2 Neutrophils % 75 % Lymphocytes % 14 % Monocytes % 7 % Eosinophils % 3 % Basophils % 1 % Neutrophils # 4.4 (1.3-7.7) k/uL Lymphocytes # 0.8 L (1.0-4.8) k/uL Monocytes # 0.4 (0-1.0) k/uL Eosinophils # 0.2 (0-0.7) k/uL Basophils # 0.0 (0-0.2) k/uL Sodium 141 (137-145) mmol/L Potassium 3.9 (3.5-5.1) mmol/L Chloride 106 (98-107) mmol/L Carbon Dioxide 27 (22-30) mmol/L Anion Gap 8 mmol/L BUN 18 (9-20) mg/dL Creatinine 0.90 (0.66-1.25) mg/dL Est GFR (CKD-EPI)AfAm >90 (>60 ml/min/1.73 sqM) Est GFR (CKD-EPI)NonAf >90 (>60 ml/min/1.73 sqM) Glucose 118 H (74-99) mg/dL Calcium 9.4 (8.4-10.2) mg/dL Total Bilirubin 0.5 (0.2-1.3) mg/dL AST 39 (17-59) U/L ALT 36 (4-49) U/L Alkaline Phosphatase 35 L (38-126) U/L Total Protein 7.2 (6.3-8.2) g/dL Albumin 4.1 (3.5-5.0) g/dL Urine Color Samina Urine Appearance Bloody (Clear) Urine RBC >182 H (0-5) /hpf Urine WBC 44 H (0-5) /hpf Disposition Clinical Impression: Hematuria, Urinary retention, Urethral stricture Disposition: HOME SELF-CARE Condition: Good Additional Instructions: Please use medication as discussed. Please follow-up with family doctor in the next 2 days for repeat hemoglobin and please follow-up with your established uroogist or Dr. Campbell/Poncho. Return to ER if haider is not draining properly/large clots/ increasing redness. Please return to emergency room if the symptoms increase or worsen or for any other concerns. Prescriptions: Cephalexin [Keflex] 500 mg PO Q6HR 5 Days #20 cap Is patient prescribed a controlled substance at d/c from ED?: No Referrals: Skardarsy,Alan, MD [Primary Care Provider] - 1-2 days Dilshad Campbell MD [STAFF PHYSICIAN] - 1-2 days Sam Isaac MD [STAFF PHYSICIAN] - 1-2 days Time of Disposition: 15:33
[2020-12-28 15:43] LABS: Appearance,Urine Bloody (Clear); Color,Urine Amber
[2020-12-28 16:27] VITALS: BP 165/89; PULSE 84; RESP 20
== END 2020-12-28 16:33 | disposition home or self-care (01) ==
LOC: EC 14:24
DX: N35.919 Unspecified urethral stricture, male, unspecified site (principal); R31.9 Hematuria, unspecified; I10 Essential (primary) hypertension; E78.5 Hyperlipidemia, unspecified; Z79.899 Other long term (current) drug therapy; Z79.01 Long term (current) use of anticoagulants; Z79.02 Long term (current) use of antithrombotics/antiplatelets; Z88.5 Allergy status to narcotic agent; Z88.2 Allergy status to sulfonamides; Z88.1 Allergy status to other antibiotic agents; Z85.51 Personal history of malignant neoplasm of bladder; Z96.60 Presence of unspecified orthopedic joint implant
CPT/HCPCS: 36415; 80053; 85025; 87086; 99283

== ENCOUNTER 2020-12-30 11:40 | Emergency (ER) | payer OTHER ==
[2020-12-30 11:44] VITALS: PULSE 67; TEMP 97.7
--- NOTE | 2020-12-30 12:05 | ED ---
Male Urogenital HPI - General Chief complaint: Urogenital Stated complaint: Souza Cath issue post 2xdays Time Seen by Provider: 12/30/20 11:55 Source: patient, RN notes reviewed Mode of arrival: ambulatory Limitations: no limitations - History of Present Illness Initial comments: This a 65-year-old pleasant gentleman presents emergency Department with chief complaint of penile discomfort. Patient had cystoscopy earlier in the month secondary to hematuria at this time is found to have severe strictures of the urethra from prior prostate cancer radiation treatment patient states that they are available biopsy, found no tumors states from the procedure he is having worsening hematuria. Patient states he presented 2 days ago because he was unable to urinate fully catheter was placed at this time states he had some slight increased discomfort but felt it was just from the procedure. Patient states currently he strain easily it is still bloody tinged but states that there is been no clots and he requests catheter removed. No abdominal plain no flank pain no fevers or chills. - Related Data Home Medications Medication Instructions Recorded Confirmed Cholecalciferol [Vitamin D3 (25 1,000 unit PO DAILY 08/28/20 12/30/20 Mcg = 1000 Iu)] Clopidogrel Bisulfate [Plavix] 75 mg PO DAILY 08/28/20 12/30/20 Fenofibrate Nanocrystallized 145 mg PO DAILY 08/28/20 12/30/20 [Fenofibrate] Folic Acid 1 mg PO DAILY 08/28/20 12/30/20 Furosemide [Lasix] 40 mg PO DAILY 08/28/20 12/30/20 Metoprolol Tartrate [Lopressor] 50 mg PO HS 08/28/20 12/30/20 Metoprolol Tartrate [Lopressor] 100 mg PO DAILY 08/28/20 12/30/20 Multivitamins, Thera [Multivitamin 1 tab PO DAILY 08/28/20 12/30/20 (formulary)] Potassium Chloride ER [K-Dur 10] 10 meq PO BID 08/28/20 12/30/20 Rivaroxaban [Xarelto] 20 mg PO HS 08/28/20 12/30/20 Tamsulosin HCl [Flomax] 0.4 mg PO DAILY 08/28/20 12/30/20 amLODIPine [Norvasc] 10 mg PO DAILY 08/28/20 12/30/20 Vitamin E 1,000 unit PO DAILY 10/16/20 12/30/20 Cephalexin [Keflex] 500 mg PO Q12H 12/30/20 12/30/20 Citalopram Hydrobromide [CeleXA] 40 mg PO DAILY 12/30/20 12/30/20 Nitroglycerin Sl Tabs [Nitrostat] 0.4 mg SUBLINGUAL Q5M PRN 12/30/20 12/30/20 Rosuvastatin [Crestor] 20 mg PO HS 12/30/20 12/30/20 lisinopriL [Zestril] 10 mg PO DAILY 12/30/20 12/30/20 Allergies Allergy/AdvReac Type Severity Reaction Status Date / Time sulfamethoxazole Allergy Rash/Hives Verified 12/30/20 12:30 [From Bactrim] trimethoprim [From Bactrim] Allergy Rash/Hives Verified 12/30/20 12:30 Review of Systems ROS Statement: Those systems with pertinent positive or pertinent negative responses have been documented in the HPI. ROS Other: All systems not noted in ROS Statement are negative. Past Medical History Past Medical History: Hyperlipidemia, Hypertension Additional Past Medical History / Comment(s): polycystic kidney diseased, bladder CA biopsy. History of Any Multi-Drug Resistant Organisms: MRSA Date of last positivie culture/infection: 2019 MDRO Source:: right leg Past Surgical History: Appendectomy, Heart Catheterization With Stent, Joint Replacement, Orthopedic Surgery Additional Past Surgical History / Comment(s): mutiple surgeries to right leg. Date of Last Stent Placement:: jul 19, 2020 Past Psychological History: No Psychological Hx Reported Smoking Status: Never smoker Past Alcohol Use History: Occasional Past Drug Use History: None Reported - Past Family History Mother Family Medical History: Diabetes Mellitus Additional Family Medical History / Comment(s): heart problems Father Additional Family Medical History / Comment(s): heart problems General Exam Limitations: no limitations General appearance: alert, in no apparent distress Respiratory exam: Present: normal lung sounds bilaterally. Absent: respiratory distress, wheezes, rales, rhonchi, stridor Cardiovascular Exam: Present: regular rate, normal rhythm, normal heart sounds. Absent: systolic murmur, diastolic murmur, rubs, gallop, clicks GI/Abdominal exam: Present: soft, normal bowel sounds. Absent: distended, tenderness, guarding, rebound, rigid exam: Present: other (Fully catheter in place, mildly blood tinged urine noted) Back exam: Absent: CVA tenderness (R), CVA tenderness (L) Neurological exam: Present: alert Course Vital Signs 12/30/20 11:41 Temperature 97.7 F Pulse Rate 67 Respiratory 16 Rate Blood Pressure 187/80 O2 Sat by Pulse 97 Oximetry Medical Decision Making - Medical Decision Making 65-year-old presented for urethral canal pain. Catheter was removed patient was able to urinate small amount out. Patient states his pain, pressure is resolved. Patient discharged in stable condition. Disposition Clinical Impression: Hematuria, Urethral pain Disposition: HOME SELF-CARE Condition: Stable Instructions (If sedation given, give patient instructions): Hematuria (ED) Additional Instructions: Please return to the Emergency Department if symptoms worsen or any other concerns. Is patient prescribed a controlled substance at d/c from ED?: No Referrals: Alan Calix MD [Primary Care Provider] - 1-2 days Time of Disposition: 12:47
[2020-12-30 13:03] VITALS: BP 172/92; RESP 18
== END 2020-12-30 13:03 | disposition home or self-care (01) ==
LOC: EC 11:40
DX: N36.9 Urethral disorder, unspecified (principal); R31.9 Hematuria, unspecified; I10 Essential (primary) hypertension; E78.5 Hyperlipidemia, unspecified; Z79.02 Long term (current) use of antithrombotics/antiplatelets; Z79.899 Other long term (current) drug therapy; Z79.01 Long term (current) use of anticoagulants; Z88.1 Allergy status to other antibiotic agents; Z88.2 Allergy status to sulfonamides; Z95.5 Presence of coronary angioplasty implant and graft; Z85.51 Personal history of malignant neoplasm of bladder; Z85.46 Personal history of malignant neoplasm of prostate
CPT/HCPCS: 99283

== ENCOUNTER 2021-01-23 20:03 | Inpatient (IN) | payer OTHER ==
[2021-01-23] MEDS ORDERED: ACETAMINOPHEN TAB 500 MG TAB PO STA (21:15)
[2021-01-23] MEDS ORDERED: VANCOMYCIN IV PER PHARMACY 1 EACH MISC MISCELLANE PRN (21:17)
[2021-01-23] MEDS ORDERED: PIPERACILLIN-TAZOBACTAM 3.375 GM in SODIUM CHLORIDE 0.9% 100 ML IVPB STA (21:17)
[2021-01-23] MEDS ORDERED: VANCOMYCIN 2,000 MG in SODIUM CHLORIDE 0.9% 500 ML 500 ML IVPB STA (21:17)
[2021-01-23 21:41] LABS: Basophils % (A) 0 %; Eosinophils # (A) 0.1 k/uL (0-0.7); Eosinophils % (A) 0 %; HCT 46.4 % (39.0-53.0); Lymphocytes # (A) 0.3 k/uL (1.0-4.8); Lymphocytes % (A) 2 %; MCHC 32.4 g/dL (31.0-37.0); MCV 89.6 fL (80.0-100.0); Mean Platelet Volume 7.6; Monocytes # (A) 0.5 k/uL (0-1.0); Monocytes % (A) 4 %; Neutrophils # (A) 12.6 k/uL (1.3-7.7); Neutrophils % (A) 93 %; Platelet Count 205 k/uL (150-450); RBC 5.18 m/uL (4.30-5.90); RDW 14.7 % (11.5-15.5); WBC 13.5 k/uL (3.8-10.6)
[2021-01-23 21:42] LABS: Appearance,Urine Clear (Clear); Bilirubin,Urine Negative (Negative); Blood,Urine Negative (Negative); Color,Urine Yellow; Glucose,Urine (UA) Negative (Negative); Ketones,Urine Negative (Negative); Leukocyte Esterase,Urine Negative (Negative); Nitrite,Urine Negative (Negative); PH, Urine 8.5 (5.0-8.0); Protein,Urine Negative (Negative); Specific Gravity,Urine 1.014 (1.001-1.035); Urobilinogen,Urine <2.0 mg/dL (<2.0)
[2021-01-23 21:52] LABS: D-Dimer 0.27 mg/L FEU (<0.60); INR 1.4 (<1.2); Partial Thromboplastin Time 32.4 sec (22.0-30.0); Prothrombin Time 14.4 sec (9.0-12.0)
[2021-01-23] MEDS: SODIUM CHLORIDE 0.9% 500 ML 500 ML IV SCH (21:52)
[2021-01-23] MEDS: SODIUM CHLORIDE 0.9% 1,000 ML IV SCH (21:56)
[2021-01-23 21:58] LABS: ALT 34 U/L (4-49); AST 40 U/L (17-59); African American GFR (CKD) >90 (>60 ml/min/1.73 sqM); Albumin 4.6 g/dL (3.5-5.0); Alkaline Phosphatase 36 U/L (38-126); Anion Gap 9 mmol/L; Blood Urea Nitrogen 17 mg/dL (9-20); C Reactive Protein 15.6 mg/L (<10.0); Calcium 9.3 mg/dL (8.4-10.2); Carbon Dioxide 28 mmol/L (22-30); Chloride 102 mmol/L (98-107); Glucose 108 mg/dL (74-99); LDH 694 U/L (313-618); Magnesium 1.7 mg/dL (1.6-2.3); Non-African American GFR(CKD) 89 (>60 ml/min/1.73 sqM); Sodium 139 mmol/L (137-145); Total Bilirubin 0.7 mg/dL (0.2-1.3); Total Protein 7.8 g/dL (6.3-8.2)
--- NOTE | 2021-01-23 22:08 | XR ---
RESULT: HISTORY: Swelling, redness, cellulitis TECHNIQUE: 2 views of the right tibia and fibula were obtained. COMPARISON: None. FINDINGS: There is no acute fracture or dislocation. Left knee total arthroplasty seen. No soft tissue gas or r adiographic evidence for osteomyelitis. IMPRESSION: No radiographic evidence of osteomyelitis or soft tissue gas.
--- NOTE | 2021-01-23 22:10 | XR ---
EXAMINATION TYPE: XR chest 1V portable DATE OF EXAM: 01/23/2021 COMPARISON: NONE HISTORY: Fever. TECHNIQUE: Single frontal view of the chest is obtained. FINDINGS: There is diffuse moderate hazy opacity in the right lower and additional left basilar hazy opacity. No pleural effusion, or pneumothorax seen. Cardiomegaly. The osseous structures are intac t. IMPRESSION: Moderate hazy opacity, may represent dependent edema and/or atelectasis. Superimposed in filtrates cannot be excluded.
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
[2021-01-23] MEDS ORDERED: NALOXONE 0.4 MG/ML 1 ML VIAL IV PRN (23:09)
--- NOTE | 2021-01-24 00:16 | CT ---
EXAMINATION TYPE: CT lower extremity RT w con DATE OF EXAM: 01/24/2021 COMPARISON: 08/28/2020 HISTORY: abcess CT DLP: 1819 mGycm Automated exposure control for dose reduction was used. CONTRAST: Performed with IV Contrast, patient injected with 100 mL of Isovue 370. Images were obtained from the level of the mid femur to the bottom of the calcaneus with IV contrast. There is left knee prosthesis. Components appear in anatomic position. I see no evidence of a fractur e. The tibia and fibula appear intact. There is extensive subcutaneous edema around the lower leg pos teriorly and medially. Ankle mortise is anatomic. The hindfoot is intact. There is no evidence of a f racture. There is no pathologic enhancement. There is very little contrast material identified. This could rel ate to slow flow. Achilles tendon is intact. IMPRESSION: Extensive subcutaneous edema around the lower leg which is also present on old exam and not significa ntly different. No focal bone destruction. No fracture. No evidence of a mass within the muscle bundl es. I do not see a definite drainable fluid collection.
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
[2021-01-24 08:31] LABS: Basophils % (A) 0 %; Eosinophils # (A) 0.2 k/uL (0-0.7); Eosinophils % (A) 2 %; HCT 40.1 % (39.0-53.0); HGB 13.4 gm/dL (13.0-17.5); Lymphocytes # (A) 0.4 k/uL (1.0-4.8); Lymphocytes % (A) 2 %; MCH 30.2 pg (25.0-35.0); MCHC 33.5 g/dL (31.0-37.0); MCV 90.3 fL (80.0-100.0); Mean Platelet Volume 7.5; Monocytes # (A) 0.5 k/uL (0-1.0); Monocytes % (A) 4 %; Neutrophils # (A) 13.1 k/uL (1.3-7.7); Neutrophils % (A) 92 %; Platelet Count 159 k/uL (150-450); RBC 4.44 m/uL (4.30-5.90); RDW 14.6 % (11.5-15.5); WBC 14.2 k/uL (3.8-10.6)
[2021-01-24 09:03] LABS: Ferritin 49.5 ng/mL (22.0-322.0)
[2021-01-24] MEDS: TAMSULOSIN 0.4 MG CAP.ER.24H PO SCH (09:09)
[2021-01-24] MEDS: amLODIPine 10 MG TAB PO SCH (09:09)
[2021-01-24] MEDS: lisinopriL 10 MG TAB PO SCH (09:09)
[2021-01-24] MEDS: CLOPIDOGREL 75 MG TAB PO SCH (09:09)
[2021-01-24] MEDS: CITALOPRAM HYDROBROMIDE 20 MG TAB PO SCH (09:09)
[2021-01-24] MEDS: METOPROLOL TARTRATE 50 MG TAB PO SCH ×2 (09:09→22:11)
[2021-01-24] MEDS: ACETAMINOPHEN TAB 325 MG TAB PO PRN ×3 (09:43→22:11)
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
--- NOTE | 2021-01-24 11:43 | US ---
EXAMINATION TYPE: US venous doppler duplex LE RT DATE OF EXAM: 01/24/2021 11:17 AM COMPARISON: NONE CLINICAL HISTORY: r/o DVT. pain, cellulitis right leg. patient on Xarelto and Plavix SIDE PERFORMED: right TECHNIQUE: The lower extremity deep venous system is examined utilizing real time linear array sonog maricarmen with graded compression, doppler sonography and color-flow sonography. VESSELS IMAGED: Common Femoral Vein Deep Femoral Vein Greater Saphenous Vein * Femoral Vein Popliteal Vein Small Saphenous Vein * Proximal Calf Veins (* superficial vessels) Right Leg: no evidence of DVT IMPRESSION: 1. Right lower extremity ultrasound negative for deep venous thrombosis.
[2021-01-24] MEDS ORDERED: VANCOMYCIN 2,000 MG in SODIUM CHLORIDE 0.9% 500 ML 500 ML IVPB SCH ×2 (12:00→16:00)
[2021-01-24] MEDS: SODIUM CHLORIDE 0.9% 1,000 ML IV SCH ×3 (16:05→21:59)
[2021-01-24] MEDS: MORPHINE SULFATE 4 MG/ML SYRINGE IVP PRN ×2 (17:52→22:12)
[2021-01-24] MEDS: ATORVASTATIN 40 MG TAB PO SCH (22:11)
[2021-01-24] MEDS: CEFEPIME 2 GM in SODIUM CHLORIDE 0.9% 100 ML IVPB SCH (22:52)
[2021-01-24] MEDS: RIVAROXABAN 20 MG TAB PO SCH (22:52)
[2021-01-25] MEDS: SODIUM CHLORIDE 0.9% 1,000 ML IV SCH (04:39)
[2021-01-25] MEDS: MORPHINE SULFATE 4 MG/ML SYRINGE IVP PRN (04:52)
[2021-01-25] MEDS: ACETAMINOPHEN TAB 325 MG TAB PO PRN ×3 (04:53→20:06)
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
[2021-01-25 06:59] LABS: Basophils % (A) 0 %; Eosinophils # (A) 0.1 k/uL (0-0.7); Eosinophils % (A) 2 %; HCT 36.3 % (39.0-53.0); HGB 12.1 gm/dL (13.0-17.5); Lymphocytes # (A) 0.5 k/uL (1.0-4.8); Lymphocytes % (A) 7 %; MCH 30.1 pg (25.0-35.0); MCHC 33.4 g/dL (31.0-37.0); MCV 90.3 fL (80.0-100.0); Mean Platelet Volume 7.7; Monocytes # (A) 0.4 k/uL (0-1.0); Monocytes % (A) 6 %; Neutrophils # (A) 5.8 k/uL (1.3-7.7); Neutrophils % (A) 84 %; Platelet Count 141 k/uL (150-450); RBC 4.02 m/uL (4.30-5.90); RDW 14.4 % (11.5-15.5); WBC 6.9 k/uL (3.8-10.6)
[2021-01-25 07:26] LABS: African American GFR (CKD) >90 (>60 ml/min/1.73 sqM); Anion Gap 6 mmol/L; Blood Urea Nitrogen 13 mg/dL (9-20); Calcium 8.3 mg/dL (8.4-10.2); Carbon Dioxide 26 mmol/L (22-30); Chloride 105 mmol/L (98-107); Glucose 124 mg/dL (74-99); Non-African American GFR(CKD) >90 (>60 ml/min/1.73 sqM); Potassium 3.6 mmol/L (3.5-5.1); Sodium 137 mmol/L (137-145)
[2021-01-25 09:09] LABS: C Reactive Protein 197.8 mg/L (<10.0)
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
[2021-01-25] MEDS: METOPROLOL TARTRATE 50 MG TAB PO SCH ×2 (09:35→21:17)
[2021-01-25] MEDS: amLODIPine 10 MG TAB PO SCH (09:35)
[2021-01-25] MEDS: CITALOPRAM HYDROBROMIDE 20 MG TAB PO SCH (09:35)
[2021-01-25] MEDS: TAMSULOSIN 0.4 MG CAP.ER.24H PO SCH (09:36)
[2021-01-25] MEDS: CLOPIDOGREL 75 MG TAB PO SCH (09:36)
[2021-01-25] MEDS: CEFEPIME 2 GM in SODIUM CHLORIDE 0.9% 100 ML IVPB SCH ×2 (09:36→21:18)
[2021-01-25] MEDS: MORPHINE SULFATE 2 MG/ML SYRINGE IVP PRN ×2 (09:37→20:05)
[2021-01-25 10:06] LABS: Erythrocyte Sedimentation Rate 44 mm/hr (0-15)
[2021-01-25] MEDS: lisinopriL 10 MG TAB PO SCH (11:32)
[2021-01-25] MEDS ORDERED: ZINC OXIDE 20% OINT 28.4 GM TUBE TOPICAL PRN (12:48)
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
--- NOTE | 2021-01-25 19:05 | PN ---
PROGRESS NOTE DATE OF SERVICE: 01/25/2021 REASON FOR FOLLOWUP: Right lower extremity cellulitis and Gram-negative bacteremia. INTERVAL HISTORY: The patient did have a low-grade fever of 100 to 99 degrees Fahrenheit, though overall fever pattern has improved compared to 104 on admission. The patient is feeling slightly better. Denies having any chest pain, shortness of breath or cough. No abdominal pain. Still has swelling in his right leg, but no worsening. PHYSICAL EXAMINATION: Blood pressure 138/84, pulse of 64, temperature 99. He is 94% on room air. General description is a middle-aged male up in the chair in no distress. RESPIRATORY SYSTEM: Unlabored breathing. Clear to auscultation anteriorly. HEART: S1, S2. Regular rate and rhythm. ABDOMEN: Soft. No tenderness. Right leg with swelling, minimal redness. No drainage. LABS: White count normalized to 6.9, creatinine 0.86. Blood culture with Gram-negative bacilli. DIAGNOSTIC IMPRESSION AND PLAN: Patient with right lower extremity cellulitis with Gram-negative bacteremia. CT did not show any evidence of any abscess. The patient is covered cefepime while waiting for the culture to finalize. Continue supportive care. MMODL / IJN: [id number] /
[2021-01-25] MEDS: ATORVASTATIN 40 MG TAB PO SCH (21:17)
[2021-01-25] MEDS: RIVAROXABAN 20 MG TAB PO SCH (21:18)
[2021-01-26] MEDS: lisinopriL 10 MG TAB PO SCH (09:00)
[2021-01-26] MEDS: CITALOPRAM HYDROBROMIDE 20 MG TAB PO SCH (09:00)
[2021-01-26] MEDS: CLOPIDOGREL 75 MG TAB PO SCH (09:00)
[2021-01-26] MEDS: TAMSULOSIN 0.4 MG CAP.ER.24H PO SCH (09:00)
[2021-01-26] MEDS: METOPROLOL TARTRATE 50 MG TAB PO SCH ×2 (09:00→21:00)
[2021-01-26 09:19] LABS: Basophils # (A) 0.02 X 10*3/uL (0.00-0.10); Basophils % (A) 0.3 %; Eosinophils # (A) 0.11 X 10*3/uL (0.04-0.35); Eosinophils % (A) 1.7 %; HCT 37.2 % (39.6-50.0); HGB 11.7 g/dL (13.0-17.0); Lymphocytes % (A) 9.2 %; MCH 28.8 pg (27.0-32.0); MCHC 31.5 g/dL (32.0-37.0); MCV 91.6 fL (80.0-97.0); Mean Platelet Volume 10.6 fL (9.5-12.2); Monocytes # (A) 0.65 X 10*3/uL (0.20-1.00); Neutrophils % (A) 78.5 %; Platelet Count 172 X 10*3/uL (140-440); RBC 4.06 X 10*6/uL (4.40-5.60); RDW 14.4 % (11.5-14.5)
[2021-01-26 09:31] LABS: African American GFR (CKD) 110.2 (60.0-200.0); Anion Gap 6.8 mmol/L (4.00-12.00); BUN/Creat Ratio 13.75 Ratio (12.00-20.00); Calcium 8.6 mg/dL (8.7-10.3); Carbon Dioxide 27.2 mmol/L (21.6-31.8); Non-African American GFR(CKD) 95.1 (60.0-200.0); Potassium 3.7 mmol/L (3.5-5.5)
[2021-01-26] MEDS: FUROSEMIDE 40 MG TAB PO SCH (09:46)
[2021-01-26] MEDS: amLODIPine 10 MG TAB PO SCH (09:47)
[2021-01-26] MEDS: POTASSIUM CHLORIDE ER 10 MEQ TAB.ER.PRT PO SCH ×2 (09:47→21:00)
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
[2021-01-26] MEDS: CEFEPIME 2 GM in SODIUM CHLORIDE 0.9% 100 ML IVPB SCH ×2 (13:59→20:59)
[2021-01-26] MEDS: ATORVASTATIN 40 MG TAB PO SCH (20:59)
[2021-01-26] MEDS: MORPHINE SULFATE 2 MG/ML SYRINGE IVP PRN (20:59)
[2021-01-26] MEDS: RIVAROXABAN 20 MG TAB PO SCH (22:59)
--- NOTE | 2021-01-26 23:24 | PN ---
PROGRESS NOTE DATE OF SERVICE: 01/26/2021 REASON FOR FOLLOWUP: Left lower extremity cellulitis and Gram-negative bacteremia. INTERVAL HISTORY: The patient's overall fever pattern has improved. No fever this morning. The patient denies having any chest pain or shortness of breath or cough. No abdominal pain. Left lower extremity swelling and redness have decreased. PHYSICAL EXAMINATION: Blood pressure 147/79, pulse 59, temperature 98.4. He is 95% on room air. General description is a middle-aged male up in the chair in no distress. RESPIRATORY SYSTEM: Unlabored breathing. Clear to auscultation anteriorly. HEART: S1, S2. Regular rate and rhythm. ABDOMEN: Soft. No tenderness. Left lower extremity swelling and redness have decreased. LABS: Hemoglobin is 11.7, white count 6.50, BUN of 11, creatinine 0.8. Blood culture repeat has been negative. DIAGNOSTIC IMPRESSION AND PLAN: Patient with left lower extremity cellulitis with evidence of Gram-negative bacteremia. ID and sensitivities are pending. Patient clinically responded to cefepime; to continue while waiting for the final cultures. Continue with supportive care. MMODL / IJN: [id number] /
[2021-01-27] MEDS: MORPHINE SULFATE 2 MG/ML SYRINGE IVP PRN ×2 (02:56→10:46)
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
[2021-01-27 09:12] LABS: Anion Gap 7.4 mmol/L (4.00-12.00); BUN/Creat Ratio 15.56 Ratio (12.00-20.00); Carbon Dioxide 29.6 mmol/L (21.6-31.8); Non-African American GFR(CKD) 90.6 (60.0-200.0); Potassium 3.5 mmol/L (3.5-5.5)
[2021-01-27] MEDS: CEFEPIME 2 GM in SODIUM CHLORIDE 0.9% 100 ML IVPB SCH (09:17)
[2021-01-27] MEDS: amLODIPine 10 MG TAB PO SCH (09:51)
[2021-01-27] MEDS: POTASSIUM CHLORIDE ER 10 MEQ TAB.ER.PRT PO SCH ×2 (09:51→20:48)
[2021-01-27] MEDS: FUROSEMIDE 40 MG TAB PO SCH (09:52)
[2021-01-27] MEDS: TAMSULOSIN 0.4 MG CAP.ER.24H PO SCH (09:53)
[2021-01-27] MEDS: CLOPIDOGREL 75 MG TAB PO SCH (09:54)
[2021-01-27] MEDS: lisinopriL 10 MG TAB PO SCH (09:55)
[2021-01-27] MEDS: CITALOPRAM HYDROBROMIDE 20 MG TAB PO SCH ×2 (09:55→09:57)
[2021-01-27] MEDS: METOPROLOL TARTRATE 50 MG TAB PO SCH ×2 (09:58→20:48)
[2021-01-27] MEDS: NYSTATIN 100,000 UNIT/ML SUSP 500,000 UNIT/5 ML CUP PO SCH ×4 (09:59→20:48)
[2021-01-27 10:24] LABS: Basophils # (A) 0.04 X 10*3/uL (0.00-0.10); Basophils % (A) 0.8 %; Eosinophils # (A) 0.15 X 10*3/uL (0.04-0.35); Eosinophils % (A) 3.2 %; HGB 13.1 g/dL (13.0-17.0); Lymphocytes # (A) 0.68 X 10*3/uL (0.90-5.00); Lymphocytes % (A) 14.4 %; MCH 28.6 pg (27.0-32.0); MCHC 31.2 g/dL (32.0-37.0); MCV 91.7 fL (80.0-97.0); Mean Platelet Volume 10.1 fL (9.5-12.2); Monocytes # (A) 0.56 X 10*3/uL (0.20-1.00); Monocytes % (A) 11.9 %; Neutrophils # (A) 3.24 X 10*3/uL (1.80-7.70); Neutrophils % (A) 68.9 %; Platelet Count 229 X 10*3/uL (140-440); RBC 4.58 X 10*6/uL (4.40-5.60); RDW 14.2 % (11.5-14.5); WBC 4.71 X 10*3/uL (4.50-10.00)
[2021-01-27] MEDS: AMPICILLIN-SULBACTAM 3 GM in SODIUM CHLORIDE 0.9% 100 ML IVPB SCH ×2 (18:12→23:29)
--- NOTE | 2021-01-27 18:18 | PN ---
PROGRESS NOTE DATE OF SERVICE: 01/27/2021. REASON FOR FOLLOWUP: Right lower extremity cellulitis with Gram-negative bacteremia. INTERVAL HISTORY: Patient is currently afebrile. Patient is breathing comfortably. The patient denies having any chest pain. No shortness of breath. No cough. No abdominal pain. Overall pain and discomfort to the right leg has decreased intensity. PHYSICAL EXAMINATION: Blood pressure 154/80 with a pulse of 57, temperature 98.3. He is 95% on room air. General description is a middle-aged male up in the bed in no distress. Respiratory system: Unlabored breathing, clear to auscultation anteriorly. Heart S1, S2. Regular rate and rhythm. Abdomen soft, no tenderness. Right leg is currently with an alexsander wrap. No obvious drainage on the dressing. LABS: Hemoglobin 13.1, white count 4.71, creatinine 0.9. Blood culture with the . Followup blood culture negative. DIAGNOSTIC IMPRESSION AND PLAN: Patient with bacteremia and right lower extremity cellulitis. CT was negative for any abscess. Antibiotic switched over to Unasyn to continue over the weekend. Hopefully finish therapy with oral Augmentin. Continue supportive care. MMODL / IJN: [id number] /
[2021-01-27] MEDS: RIVAROXABAN 20 MG TAB PO SCH (20:48)
[2021-01-27] MEDS: ATORVASTATIN 40 MG TAB PO SCH (20:48)
[2021-01-28] MEDS: MORPHINE SULFATE 2 MG/ML SYRINGE IVP PRN ×2 (00:26→09:22)
[2021-01-28] MEDS: AMPICILLIN-SULBACTAM 3 GM in SODIUM CHLORIDE 0.9% 100 ML IVPB SCH ×3 (04:49→17:57)
[2021-01-28] MEDS: TAMSULOSIN 0.4 MG CAP.ER.24H PO SCH (09:10)
[2021-01-28] MEDS: NYSTATIN 100,000 UNIT/ML SUSP 500,000 UNIT/5 ML CUP PO SCH ×4 (09:11→23:14)
[2021-01-28] MEDS: amLODIPine 10 MG TAB PO SCH (09:11)
[2021-01-28] MEDS: FUROSEMIDE 40 MG TAB PO SCH (09:11)
[2021-01-28] MEDS: CLOPIDOGREL 75 MG TAB PO SCH (09:11)
[2021-01-28] MEDS: POTASSIUM CHLORIDE ER 10 MEQ TAB.ER.PRT PO SCH ×2 (09:11→20:28)
[2021-01-28] MEDS: lisinopriL 10 MG TAB PO SCH (09:11)
[2021-01-28] MEDS: METOPROLOL TARTRATE 50 MG TAB PO SCH ×2 (09:11→20:28)
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
--- NOTE | 2021-01-28 19:57 | PN ---
PROGRESS NOTE DATE OF SERVICE: 01/28/2021 REASON FOR FOLLOWUP: Right lower extremity cellulitis with bacteremia. INTERVAL HISTORY: Patient is currently afebrile. Patient is breathing comfortably. Patient denies having any chest pain. No shortness of breath. No cough. No nausea. No vomiting. No abdominal pain or pain to the right lower extremity. PHYSICAL EXAMINATION: Blood pressure 148/79, pulse of 54, temperature 98. He is 96% on room air. General description is a middle-aged male up in the bed in no distress. Respiratory system: Unlabored breathing, clear to auscultation anteriorly. Heart S1, S2. Regular rate and rhythm. Abdomen soft, no tenderness. Right leg swelling and redness has improved. LABS: Repeat blood culture has been negative. DIAGNOSTIC IMPRESSION AND PLAN: Patient with acute right lower extremity cellulitis with bacteremia overall improvement on Unasyn. Plan is to finish therapy with oral Augmentin 875 b.i.d. for 10 days and close outpatient followup. Continue supportive care. MMODL / IJN: [id number] /
[2021-01-28] MEDS: ATORVASTATIN 40 MG TAB PO SCH (20:28)
[2021-01-28] MEDS: RIVAROXABAN 20 MG TAB PO SCH (20:28)
[2021-01-29] MEDS: AMPICILLIN-SULBACTAM 3 GM in SODIUM CHLORIDE 0.9% 100 ML IVPB SCH ×2 (00:33→05:59)
[2021-01-29] MEDS: MORPHINE SULFATE 2 MG/ML SYRINGE IVP PRN (00:35)
[2021-01-29 05:57] VITALS: BP 117/55; PULSE 60; RESP 18; TEMP 97.9
[2021-01-29] MEDS: CITALOPRAM HYDROBROMIDE 20 MG TAB PO SCH (08:36)
[2021-01-29] MEDS: lisinopriL 10 MG TAB PO SCH (08:36)
[2021-01-29] MEDS: TAMSULOSIN 0.4 MG CAP.ER.24H PO SCH (08:36)
[2021-01-29] MEDS: POTASSIUM CHLORIDE ER 10 MEQ TAB.ER.PRT PO SCH (08:36)
[2021-01-29] MEDS: FUROSEMIDE 40 MG TAB PO SCH (08:36)
[2021-01-29] MEDS: amLODIPine 10 MG TAB PO SCH (08:36)
[2021-01-29] MEDS: CLOPIDOGREL 75 MG TAB PO SCH (08:37)
[2021-01-29] MEDS: METOPROLOL TARTRATE 50 MG TAB PO SCH (08:37)
[2021-01-29] MEDS: NYSTATIN 100,000 UNIT/ML SUSP 500,000 UNIT/5 ML CUP PO SCH (08:37)
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
[2021-01-29 10:55] VITALS: BMI 45.1
== END 2021-01-29 12:41 | disposition home or self-care (01) | DRG 872 ==
LOC: EC 20:03 → 1SOBS 23:11 → 4SSUR 01-24 10:42 → 5NMEDONC 01-24 20:22
PROVIDERS: ADMIT Internal Medicine; ATTEND Internal Medicine
PROC: 5A09557 Assistance with Respiratory Ventilation, Greater than 96 Consecutive Hours, Continuous Positive Airway Pressure (ICD-10-PCS; 2021-01-24)
PROC: 05HF33Z Insertion of Infusion Device into Left Cephalic Vein, Percutaneous Approach (ICD-10-PCS; principal; 2021-01-26 09:50)
DX: A41.59 Other Gram-negative sepsis (principal); Q61.3 Polycystic kidney, unspecified; L03.115 Cellulitis of right lower limb; Z68.42 Body mass index [BMI] 45.0-49.9, adult; B37.0 Candidal stomatitis; I48.92 Unspecified atrial flutter; E66.01 Morbid (severe) obesity due to excess calories; Z20.822 Contact with and (suspected) exposure to COVID-19; E78.5 Hyperlipidemia, unspecified; I10 Essential (primary) hypertension; I25.10 Atherosclerotic heart disease of native coronary artery without angina pectoris; G47.33 Obstructive sleep apnea (adult) (pediatric); Z79.01 Long term (current) use of anticoagulants; Z79.02 Long term (current) use of antithrombotics/antiplatelets; Z79.899 Other long term (current) drug therapy; Z85.46 Personal history of malignant neoplasm of prostate; Z86.14 Personal history of Methicillin resistant Staphylococcus aureus infection; Z90.49 Acquired absence of other specified parts of digestive tract; Z87.19 Personal history of other diseases of the digestive system; Z85.51 Personal history of malignant neoplasm of bladder; Z95.5 Presence of coronary angioplasty implant and graft; Z96.60 Presence of unspecified orthopedic joint implant; Z87.39 Personal history of other diseases of the musculoskeletal system and connective tissue; Z71.3 Dietary counseling and surveillance; Z98.890 Other specified postprocedural states; Z88.2 Allergy status to sulfonamides; Z83.3 Family history of diabetes mellitus; Z82.49 Family history of ischemic heart disease and other diseases of the circulatory system; Z82.5 Family history of asthma and other chronic lower respiratory diseases
CPT/HCPCS: 36410; 36415; 71045; 76937; 80048; 80053; 81003; 82728; 83605; 83615; 83735; 84145; 84484; 85025; 85379; 85610; 85652; 85730; 86140; 87040; 87635; 93005; 96361; 96365; 96366; 96367; 96375; 99285

== ENCOUNTER 2021-04-09 01:10 | Emergency (ER) | payer OTHER ==
[2021-04-09 01:25] VITALS: TEMP 97.7
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
[2021-04-09] MEDS ORDERED: CITALOPRAM HYDROBROMIDE 20 MG TAB PO STA ×2 (02:53)
[2021-04-09 03:00] LABS: Basophils # (A) 0.1 k/uL (0-0.2); Basophils % (A) 1 %; Eosinophils # (A) 0.1 k/uL (0-0.7); Eosinophils % (A) 1 %; HCT 53.1 % (39.0-53.0); HGB 16.9 gm/dL (13.0-17.5); Lymphocytes % (A) 13 %; MCH 28.9 pg (25.0-35.0); MCHC 31.7 g/dL (31.0-37.0); MCV 91.2 fL (80.0-100.0); Mean Platelet Volume 7.2; Monocytes # (A) 0.7 k/uL (0-1.0); Monocytes % (A) 8 %; Neutrophils # (A) 6.2 k/uL (1.3-7.7); Neutrophils % (A) 76 %; Platelet Count 277 k/uL (150-450); RBC 5.83 m/uL (4.30-5.90); WBC 8.1 k/uL (3.8-10.6)
[2021-04-09 03:02] LABS: INR 1.3 (<1.2); Partial Thromboplastin Time 37.5 sec (22.0-30.0); Prothrombin Time 13.3 sec (9.0-12.0)
[2021-04-09 03:17] LABS: ALT 32 U/L (4-49); AST 37 U/L (17-59); African American GFR (CKD) >90 (>60 ml/min/1.73 sqM); Albumin 4.5 g/dL (3.5-5.0); Alkaline Phosphatase 35 U/L (38-126); Anion Gap 7 mmol/L; Blood Urea Nitrogen 20 mg/dL (9-20); Calcium 9.5 mg/dL (8.4-10.2); Carbon Dioxide 31 mmol/L (22-30); Chloride 104 mmol/L (98-107); Glucose 112 mg/dL (74-99); Lipase 136 U/L (23-300); Non-African American GFR(CKD) 89 (>60 ml/min/1.73 sqM); Potassium 3.7 mmol/L (3.5-5.1); Sodium 142 mmol/L (137-145); Total Bilirubin 0.4 mg/dL (0.2-1.3); Total Protein 7.5 g/dL (6.3-8.2)
--- NOTE | 2021-04-09 03:22 | XR ---
EXAM: XR Chest, 2 Views CLINICAL HISTORY: ITS.REASON XR Reason: Chest Pain TECHNIQUE: Frontal and lateral views of the chest. COMPARISON: January 23, 2021 FINDINGS: Lungs: Pulmonary vascularity is slightly prominent but sharply defined. Pleural space: Unremarkable. No pneumothorax. Heart: The cardiac silhouette is mildly enlarged, exaggerated by large body habitus. Mediastinum: Unremarkable. Bones/joints: Previous fusion in the lower cervical spine. Upper abdomen: There is no pneumoperitoneum under the diaphragm. IMPRESSION: Cardiomegaly and mild vascular congestion. No overt edema or acute focal infiltrate is seen.
[2021-04-09 03:58] VITALS: BP 160/89; PULSE 60; RESP 18
== END 2021-04-09 03:59 | disposition home or self-care (01) ==
LOC: EC 01:10
DX: R07.2 Precordial pain (principal); R00.2 Palpitations; T43.226A Underdosing of selective serotonin reuptake inhibitors, initial encounter; F41.9 Anxiety disorder, unspecified; F43.9 Reaction to severe stress, unspecified; E78.5 Hyperlipidemia, unspecified; I10 Essential (primary) hypertension; I25.10 Atherosclerotic heart disease of native coronary artery without angina pectoris; Z79.899 Other long term (current) drug therapy; Z88.1 Allergy status to other antibiotic agents; Z88.2 Allergy status to sulfonamides; Z79.01 Long term (current) use of anticoagulants
CPT/HCPCS: 36415; 71046; 80053; 83690; 83735; 83880; 84484; 85025; 85610; 85730; 93005; 99285

== ENCOUNTER → 2021-07-12 | Outpatient (CLI) | payer OTHER ==
[2021-07-12 13:45] VITALS: BP 180/74; PULSE 61; TEMP 98.4; BMI 45.8
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
== END | disposition home or self-care (01) ==
LOC: BARWHC3 13:10
PROVIDERS: ATTEND Surgery
DX: E66.01 Morbid (severe) obesity due to excess calories (principal); Z68.42 Body mass index [BMI] 45.0-49.9, adult
CPT/HCPCS: 99211

== ENCOUNTER → 2021-07-16 | Outpatient (CLI) | payer OTHER ==
[2021-07-16 20:48] LABS: HCT 44.9 % (39.6-50.0); HGB 14.4 g/dL (13.0-17.0); MCH 30.4 pg (27.0-32.0); MCHC 32.1 g/dL (32.0-37.0); MCV 94.9 fL (80.0-97.0); Mean Platelet Volume 10.3 fL (9.5-12.2); Platelet Count 232 X 10*3/uL (140-440); RBC 4.73 X 10*6/uL (4.40-5.60); RDW 13.6 % (11.5-14.5); WBC 5.31 X 10*3/uL (4.50-10.00)
[2021-07-17 02:43] LABS: ALT 33 U/L (10-49); AST 28 U/L (14-35); African American GFR (CKD) 91.8 (60.0-200.0); Albumin/Globulin Ratio 1.65 (1.60-3.17); Alkaline Phosphatase 33 U/L (41-126); Calcium 9.7 mg/dL (8.7-10.3); Carbon Dioxide 25.9 mmol/L (21.6-31.8); Chloride 109 mmol/L (96-109); Folate, Serum >24.0 ng/mL; Globulin 2.6 g/dL (1.6-3.3); Glucose 98 mg/dL (70-110); Iron 61 ug/dL (65-175); Non-African American GFR(CKD) 79.2 (60.0-200.0); Sodium 145 mmol/L (135-145); Total Bilirubin 0.4 mg/dL (0.2-1.2); Total Protein 6.9 g/dL (6.2-8.2)
[2021-07-17 06:03] LABS: Hemoglobin A1C 5.9 % (4.0-6.0)
== END | disposition home or self-care (01) ==
LOC: LABWHC1 13:47
PROVIDERS: ATTEND Surgery
DX: E66.01 Morbid (severe) obesity due to excess calories (principal); E55.9 Vitamin D deficiency, unspecified; K90.89 Other intestinal malabsorption
CPT/HCPCS: 84425; 80053; 82607; 82746; 83540; 85027; 82306; 80323; 83036; 80307; 36415; G0482

== ENCOUNTER 2021-09-04 10:25 | Day surgery (SDC) | payer OTHER ==
[2021-08-30 14:41] VITALS: BMI 45.9
[~2021-09-04 10:25] MED LIST: LACTATED RINGERS 1,000 ML IV SCH
[2021-09-04 10:52] VITALS: RESP 16; TEMP 97.5
[2021-09-04] MEDS ORDERED: LIDOCAINE 1% (10MG/ML) FOR IV START INTRADERMA ONE (10:54)
[2021-09-04] MEDS ORDERED: PROPOFOL 10 MG/ML 20 ML VIAL IV ONE (11:34)
[2021-09-04] MEDS ORDERED: KETAMINE 10 MG/ML 20 ML VIAL ONE (11:34)
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
--- NOTE | 2021-09-04 11:47 | P.PCN ---
Date of Procedure: 09/04/21 Procedure(s) Performed: Preoperative Dx: Epigastric pain, presurgical Postoperative Dx: Mild gastritis, small sliding hiatal hernia Procedure: EGD with Bx Anesthesia: Sedation Endoscopist: Dr. Horta Specimens: Antrum Endoscopic Procedure: The patient was on the endoscopy table in the left decubitus position. The Olympus gastroscope was inserted into the oropharynx and passed under direct visualization to the region of the third portion of the duodenum. From that point the scope was slowly withdrawn inspecting all surfaces carefully. There were no neoplastic inflammatory or polypoid lesions throughout the duodenum. The pylorus was widely patent. The stomach was carefully inspected. There was mild gastritis present. A biopsy of the antrum took place to rule out H. pylori. Retroflexion revealed a small sliding hiatal hernia. GE junction was present 0.5-1 cm above the diaphragmatic hiatus. The esophagus was then carefully examined. There were no neoplastic inflammatory or polypoid lesions throughout the visualized esophagus. The patient was then taken to the recovery room in stable condition per anesthesia guidelines. Recommendations: Await biopsy results. Follow-up bariatric clinic.
[2021-09-04 12:27] VITALS: BP 148/71; PULSE 63
== END 2021-09-04 13:11 | disposition home or self-care (01) ==
LOC: ORWHC2ENDO 10:25
PROVIDERS: ATTEND Surgery
DX: K29.70 Gastritis, unspecified, without bleeding (principal); K44.9 Diaphragmatic hernia without obstruction or gangrene; E78.5 Hyperlipidemia, unspecified; I10 Essential (primary) hypertension; I25.10 Atherosclerotic heart disease of native coronary artery without angina pectoris; Q61.3 Polycystic kidney, unspecified; Z79.899 Other long term (current) drug therapy; Z83.3 Family history of diabetes mellitus; Z88.1 Allergy status to other antibiotic agents; Z88.2 Allergy status to sulfonamides; Z90.49 Acquired absence of other specified parts of digestive tract; Z95.818 Presence of other cardiac implants and grafts; I48.92 Unspecified atrial flutter; F32.9 Major depressive disorder, single episode, unspecified; Z79.01 Long term (current) use of anticoagulants
CPT/HCPCS: 43239; J2704; 88305

== ENCOUNTER → 2021-11-05 | Outpatient (CLI) | payer OTHER ==
[2021-11-05 14:09] VITALS: BMI 47.9
== END | disposition home or self-care (01) ==
LOC: BARWHC3 08:59
PROVIDERS: ATTEND Surgery
DX: E66.01 Morbid (severe) obesity due to excess calories (principal); Z71.3 Dietary counseling and surveillance
CPT/HCPCS: 97804

== ENCOUNTER → 2021-11-15 | Outpatient (CLI) | payer OTHER ==
--- NOTE | 2021-11-15 13:23 | P.BASOAP ---
Subjective Progress Note Date: 11/15/21 Principal diagnosis: Morbid obesity Patient returns after recent EGD was performed. Mild gastritis and small hiatal hernia noted. Doing well. Denies heartburn. Interested in proceeding with sleeve gastrectomy. Patient on Xarelto for A. fib/SVT and Plavix for previous cardiac stents. He was seen by his obstetrics gyn physician and was cleared with mild cardiac risk with the bariatric procedure described. No tobacco use. BMI remains elevated at 46. He has lost 9 pounds since last week. Objective - Vital Signs Vital signs: Intake & Output 11/14/21 11/15/21 11/15/21 18:59 06:59 18:59 Weight 143.335 kg - Exam Abdomen: Soft, nontender, nondistended Assessment/Plan (1) Morbid obesity with BMI of 45.0-49.9, adult Narrative/Plan: 66-year-old male with morbid this evening and associated comorbidities. Patient remains interested in sleeve gastrectomy. We'll schedule for laparoscopic sleeve gastrectomy with hiatal hernia repair, possible open. The risks of bleeding, infection, stenosis, stricture, leak, abscess, fistula formation, peritonitis, poor weight loss, reflux, vomiting, conversion to an open procedure, aborting sleeve gastrectomy, MN, PE, DVT, and were discussed. The patient understands and wishes to proceed. Plan: Date: Initial Weight: Initial BMI: Current Weight: 143.335 kg Current BMI: Type of Surgery: Total Volume in Band: Previous Volume: Volume Removed: Volume Added: Band Size:
[2021-11-15 13:29] VITALS: BP 145/89; PULSE 78; TEMP 98.2; BMI 46.0
== END | disposition home or self-care (01) ==
LOC: BARWHC3 12:18
PROVIDERS: ATTEND Surgery
DX: E66.01 Morbid (severe) obesity due to excess calories (principal); Z68.42 Body mass index [BMI] 45.0-49.9, adult
CPT/HCPCS: 99211

== ENCOUNTER → 2021-12-10 | Outpatient (CLI) | payer OTHER ==
[2021-12-10 19:08] LABS: Basophils # (A) 0.04 X 10*3/uL (0.00-0.10); Basophils % (A) 0.5 %; Eosinophils # (A) 0.05 X 10*3/uL (0.04-0.35); Eosinophils % (A) 0.6 %; HCT 49.2 % (39.6-50.0); HGB 15.4 g/dL (13.0-17.0); Immature Grans, Automated 0.5 %; Lymphocytes # (A) 1.18 X 10*3/uL (0.90-5.00); Lymphocytes % (A) 14.5 %; MCH 29.2 pg (27.0-32.0); MCHC 31.3 g/dL (32.0-37.0); MCV 93.4 fL (80.0-97.0); Mean Platelet Volume 10.5 fL (9.5-12.2); Monocytes # (A) 1.02 X 10*3/uL (0.20-1.00); Monocytes % (A) 12.5 %; NRBC Per 100 WBC 0 /100 WBCS (0.0-0.0); Neutrophils # (A) 5.82 X 10*3/uL (1.80-7.70); Neutrophils % (A) 71.4 %; Platelet Count 268 X 10*3/uL (140-440); RBC 5.27 X 10*6/uL (4.40-5.60); RDW 14.4 % (11.5-14.5); WBC 8.15 X 10*3/uL (4.50-10.00)
[2021-12-10 19:47] LABS: African American GFR (CKD) 103.6 (60.0-200.0); Albumin 4.2 g/dL (3.8-4.9); Albumin/Globulin Ratio 1.44 (1.60-3.17); Anion Gap 15.4 mmol/L (10.00-18.00); BUN/Creat Ratio 19.78 Ratio (12.00-20.00); Blood Urea Nitrogen 17.9 mg/dL (9.0-27.0); Carbon Dioxide 25.3 mmol/L (20.0-27.5); Globulin 2.9 g/dL (1.6-3.3); Non-African American GFR(CKD) 89.3 (60.0-200.0); Potassium 3.6 mmol/L (3.5-5.5); Total Bilirubin 0.4 mg/dL (0.30-1.20)
== END | disposition home or self-care (01) ==
LOC: LABPAT 10:17
PROVIDERS: ATTEND Surgery Plastic and Reconstructive Surgery
DX: Z01.812 Encounter for preprocedural laboratory examination (principal)
CPT/HCPCS: 36415; 80053; 85025; 93005

== ENCOUNTER 2021-12-11 15:20 | Inpatient (IN) | payer OTHER ==
[2021-12-11] MEDS ORDERED: MORPHINE SULFATE 4 MG/ML SYRINGE IV STA (15:52)
[2021-12-11 16:28] LABS: Basophils % (A) 0 %; Eosinophils # (A) 0.1 k/uL (0-0.7); Eosinophils % (A) 1 %; HCT 50.2 % (39.0-53.0); Lymphocytes # (A) 1.2 k/uL (1.0-4.8); Lymphocytes % (A) 12 %; MCH 30.1 pg (25.0-35.0); MCHC 31.9 g/dL (31.0-37.0); MCV 94.5 fL (80.0-100.0); Monocytes # (A) 0.7 k/uL (0-1.0); Monocytes % (A) 6 %; Neutrophils # (A) 8.4 k/uL (1.3-7.7); Neutrophils % (A) 80 %; Platelet Count 243 k/uL (150-450); RBC 5.31 m/uL (4.30-5.90); WBC 10.5 k/uL (3.8-10.6)
[2021-12-11 16:38] LABS: Albumin 4.4 g/dL (3.5-5.0); Calcium 10.5 mg/dL (8.4-10.2); Magnesium 1.8 mg/dL (1.6-2.3); Potassium 4.1 mmol/L (3.5-5.1); Total Bilirubin 0.8 mg/dL (0.2-1.3); Total Protein 7.6 g/dL (6.3-8.2)
[2021-12-11 16:46] LABS: INR 1.2 (<1.2); Partial Thromboplastin Time 31.2 sec (22.0-30.0); Prothrombin Time 12.5 sec (9.0-12.0)
[2021-12-11] MEDS ORDERED: DILTIAZEM DRIP BOLUS FROM BAG 1 MG SOLN IV ONE ×2 (17:45→19:57)
[2021-12-11] MEDS ORDERED: HYDROmorphone 1 MG/ML 1 ML SYRINGE IVP STA (17:46)
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
--- NOTE | 2021-12-11 18:15 | CT ---
EXAMINATION TYPE: CT angio chest CT DLP: 1875.4 mGycm, Automated exposure control for dose reduction was used. DATE OF EXAM: 12/11/2021 5:34 PM COMPARISON: Chest radiograph from 12/10/2021 CLINICAL INDICATION:Male, 66 years old with history of chest pain to back, dissection; Chest pain rad iating into back. TECHNIQUE/CONTRAST: CTA scan of the thorax is performed without and with IV Contrast, patient injected with 100ml mL of I sovue 370, pulmonary embolism protocol. MIP images are created and reviewed. 3-D images were created on a separate workstation. FINDINGS: Vasculature: No evidence of intramural hematoma. Scattered atherosclerotic disease throughout the aor ta. No evidence of aortic aneurysm. Pulmonary Artery: There is no evidence for a filling defect within the pulmonary vasculature to sugge st acute pulmonary embolism. The pulmonary artery is of normal size. Lungs/Pleura: No evidence of focal consolidation, pleural effusion or pneumothorax. Airway: Large airways are patent unremarkable. Heart: Mildly enlarged for size. There are atherosclerosis is present. Mediastinum: No gross evidence of adenopathy. Musculoskeletal: No acute osseous abnormalities Soft Tissues: Unremarkable. Lower neck: No significant findings. Upper Abdomen: Small splenule is present. IMPRESSION: 1. No evidence of aortic dissection, intramural hematoma or pulmonary embolism. 2. No megaly with coronary artery disease.
[2021-12-11] MEDS: DILTIAZEM 125 MG in SODIUM CHLORIDE 0.9% 100 ML IV SCH ×2 (18:16→20:00)
[2021-12-11] MEDS ORDERED: MAGNESIUM SULFATE-D5W PMX 1 GM in DEXTROSE/WATER 1 100ML.BAG IVPB ONE (20:25)
[2021-12-11] MEDS ORDERED: MORPHINE SULFATE 4 MG/ML SYRINGE IV PRN (20:26)
[2021-12-11] MEDS ORDERED: NALOXONE 0.4 MG/ML 1 ML VIAL IV PRN (20:26)
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
[2021-12-12] MEDS ORDERED: HYDROmorphone 1 MG/ML 1 ML SYRINGE IVP PRN (01:19)
[2021-12-12] MEDS: CITALOPRAM HYDROBROMIDE 20 MG TAB PO SCH ×2 (01:27→20:00)
[2021-12-12] MEDS: RIVAROXABAN 20 MG TAB PO SCH ×2 (01:27→20:00)
[2021-12-12] MEDS: FENOFIBRATE 160 MG TAB PO SCH ×2 (01:27→20:00)
[2021-12-12] MEDS: ATORVASTATIN 40 MG TAB PO SCH ×2 (01:27→20:00)
[2021-12-12 05:37] LABS: Basophils % (A) 0 %; Eosinophils # (A) 0.1 k/uL (0-0.7); Eosinophils % (A) 1 %; HCT 44.7 % (39.0-53.0); Lymphocytes # (A) 0.8 k/uL (1.0-4.8); Lymphocytes % (A) 11 %; MCH 29.9 pg (25.0-35.0); MCHC 31.3 g/dL (31.0-37.0); MCV 95.4 fL (80.0-100.0); Mean Platelet Volume 7.9; Monocytes # (A) 0.6 k/uL (0-1.0); Monocytes % (A) 9 %; Neutrophils # (A) 5.3 k/uL (1.3-7.7); Neutrophils % (A) 76 %; Platelet Count 203 k/uL (150-450); RBC 4.69 m/uL (4.30-5.90); RDW 14.5 % (11.5-15.5); WBC 6.9 k/uL (3.8-10.6)
[2021-12-12 05:51] LABS: African American GFR (CKD) >90 (>60 ml/min/1.73 sqM); Anion Gap 1 mmol/L; Blood Urea Nitrogen 20 mg/dL (9-20); Calcium 8.7 mg/dL (8.4-10.2); Carbon Dioxide 30 mmol/L (22-30); Chloride 102 mmol/L (98-107); Glucose 107 mg/dL (74-99); Non-African American GFR(CKD) >90 (>60 ml/min/1.73 sqM); Potassium 3.5 mmol/L (3.5-5.1); Sodium 133 mmol/L (137-145)
[2021-12-12] MEDS ORDERED: METOPROLOL TARTRATE 50 MG TAB PO SCH ×3 (09:00→21:00)
--- NOTE | 2021-12-12 10:28 | P.PN ---
Subjective Patient was examined at bedside not complaining of any new symptomatology. He currently denies any active chest pain, shortness breath or palpitations. Currently heart rate at bedside fluctuating anywhere from 100 120 bpm. Objective - Vital Signs Vital signs: Vital Signs Temp 98.0 F 12/12/21 07:54 Pulse 80 12/12/21 07:54 Resp 16 12/12/21 07:54 BP 146/96 12/12/21 07:54 Pulse Ox 95 12/12/21 07:54 Intake & Output 12/11/21 12/12/21 12/12/21 18:59 06:59 18:59 Intake Total 86.166 Balance 86.166 Weight 135.171 kg Intake: Intake, IV Titration 86.166 Amount Diltiazem 125 mg In 86.166 Sodium Chloride 0.9% 100 ml @ 5 MG/HR 5 mls/hr IV .Q24H [facility] Rx#:[id number] - Exam Constitutional: No acute distress, conversant, pleasant Eyes: Anicteric sclerae, moist conjunctiva, Pupils equal round reactive to light ENMT: NC/AT Oropharynx clear, no erythema, or exudates Neck: Supple, FROM, no masses, or JVD No carotid bruits No thyromegaly Lungs: Clear to auscultation Clear to percussion Normal respiratory effort, no accessory muscle use Cardiovascular: Heart irregular, irregular No murmurs, gallops, or rubs No peripheral edema Abdominal: Soft Nontender, no guarding, rebound or rigidity Abdomen moving with respiration Normoactive bowel sounds No hepatomegaly, No splenomegaly No palpable mass No abdominal wall hernia noted Skin: Skin deformity of the right leg due to history of compartment syndrome right leg , otherwise Normal temperature, tone, texture, turgor No induration No subcutaneous nodules No rash, lesions No ulcers Extremities: No digital cyanosis No clubbing Pedal pulses intact and symmetrical Radial pulses intact and symmetrical No calf tenderness Psychiatric: Alert and oriented to person, place and time Appropriate affect fair judgement Neuro Muscles Strength 5/5 in all 4 extremities Sensation to light touch grossly present throughout Cranial nerves II-XII grossly intact No focal sensory deficits Lymphatics: no palpable cervical or supraclavicular , or inguinal lymph nodes - Labs CBC & Chem 7: 12/12/21 05:03 12/12/21 05:03 Labs: Abnormal Lab Results - Last 24 Hours (Table) 12/11/21 12/11/21 12/11/21 Range/Units 16:13 16:13 16:13 Neutrophils # 8.4 H (1.3-7.7) k/uL Lymphocytes # (1.0-4.8) k/uL PT 12.5 H (9.0-12.0) sec INR 1.2 H (<1.2) APTT 31.2 H (22.0-30.0) sec Sodium (137-145) mmol/L BUN 25 H (9-20) mg/dL Glucose 100 H (74-99) mg/dL Calcium 10.5 H (8.4-10.2) mg/dL Alkaline Phosphatase 34 L (38-126) U/L 12/12/21 12/12/21 Range/Units 05:03 05:03 Neutrophils # (1.3-7.7) k/uL Lymphocytes # 0.8 L (1.0-4.8) k/uL PT (9.0-12.0) sec INR (<1.2) APTT (22.0-30.0) sec Sodium 133 L (137-145) mmol/L BUN (9-20) mg/dL Glucose 107 H (74-99) mg/dL Calcium (8.4-10.2) mg/dL Alkaline Phosphatase (38-126) U/L Assessment and Plan Assessment: Assessment: #1 atrial fibrillation with RVR status post ablation 2015 #2 atypical chest pain most likely secondary to above #3 coronary artery disease status post 2 stents LAD #4 essential hypertension #5 obstructive sleep apnea on CPAP #6 morbidly obese Plan: -Admitted to medicine for close monitoring -Aspiration/fall precaution -Patient currently on Cardizem maintain heart rate less than 110 bpm -Continue with anticoagulation -Cardiology consulted -DVT prophylaxis -Disposition anticipate discharge once cleared by cardiology.
[2021-12-12] MEDS: CHOLECALCIFEROL 25 MCG (1000 IU) TABLET PO SCH (10:39)
[2021-12-12] MEDS: CLOPIDOGREL 75 MG TAB PO SCH (10:39)
[2021-12-12] MEDS: POTASSIUM CHLORIDE ER 10 MEQ TAB.ER.PRT PO SCH (10:39)
[2021-12-12] MEDS: amLODIPine 10 MG TAB PO SCH (10:39)
[2021-12-12] MEDS: FOLIC ACID 1 MG TAB PO SCH (10:39)
[2021-12-12] MEDS: MULTIVITAMINS, THERA 1 EACH TAB PO SCH (10:39)
[2021-12-12] MEDS: lisinopriL 20 MG TAB PO SCH (10:39)
[2021-12-12] MEDS: TAMSULOSIN 0.4 MG CAP.ER.24H PO SCH (10:41)
[2021-12-12] MEDS: VITAMIN E (DL,TOCOPHERYL ACET) 400 UNIT (180 MG) CAP PO SCH (10:42)
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
--- NOTE | 2021-12-12 15:00 | ECHOF ---
Referral Reason:a fib with RVR MEASUREMENTS -------- HEIGHT: 180.3 cm WEIGHT: 135.2 kg BP: RVIDd: 2.4 cm (< 3.3) IVSd: 1.6 cm (0.6 - 1.1) LVIDd: 5.0 cm (3.9 - 5.3) LVPWd: 1.8 cm (0.6 - 1.1) IVSs: 2.4 cm LVIDs: 2.1 cm LVPWs: 2.3 cm Ao Diam: 3.6 cm (2.0 - 3.7) AV Cusp: 2.4 cm (1.5 - 2.6) LA Diam: 3.7 cm (2.7 - 3.8) RAP: 5.00 mmHg RVSP: 10.49 mmHg FINDINGS -------- Atrial fibrillation. This was a technically difficult study with suboptimal views. The left ventricular size is normal. There is severe concentric left ventricular hypertrophy. Ove rall left ventricular systolic function is mild-moderately impaired with, an EF between 40 - 45 %. The right ventricle is normal in size. The left atrial size is normal. The right atrial size is normal. Lumason used The aortic valve was not well visualized. The mitral valve was not well visualized. There is trace mitral regurgitation. The tricuspid valve was not well visualized. Trace tricuspid regurgitation present. Right ventric ular systolic pressure is normal at < 35 mmHg. The pulmonic valve was not well visualized. The aortic root size is normal. IVC Not well visulized. There is no pericardial effusion. CONCLUSIONS -------- 1. The left ventricular size is normal. 2. There is severe concentric left ventricular hypertrophy. 3. Overall left ventricular systolic function is mild-moderately impaired with, an EF between 40 - 45 %. 4. There is trace mitral regurgitation. 5. Right ventricular systolic pressure is normal at < 35 mmHg. 6. There is no pericardial effusion. KAIAKO KURA TUARUA: Linda Long RDCS
[2021-12-12] MEDS ORDERED: MAGNESIUM OXIDE 400 MG TAB PO SCH (21:00)
[2021-12-13 03:28] VITALS: TEMP 97.6
[2021-12-13] MEDS ORDERED: METOPROLOL TARTRATE 50 MG TAB PO SCH ×2 (07:00→17:00)
[2021-12-13 07:51] VITALS: RESP 16
[2021-12-13] MEDS: amLODIPine 10 MG TAB PO SCH (07:52)
[2021-12-13] MEDS: POTASSIUM CHLORIDE ER 10 MEQ TAB.ER.PRT PO SCH (07:52)
[2021-12-13] MEDS: FOLIC ACID 1 MG TAB PO SCH (07:52)
[2021-12-13] MEDS: lisinopriL 20 MG TAB PO SCH (07:53)
[2021-12-13] MEDS: VITAMIN E (DL,TOCOPHERYL ACET) 400 UNIT (180 MG) CAP PO SCH (07:53)
[2021-12-13] MEDS: TAMSULOSIN 0.4 MG CAP.ER.24H PO SCH (07:53)
[2021-12-13] MEDS: MULTIVITAMINS, THERA 1 EACH TAB PO SCH (07:53)
[2021-12-13] MEDS: CHOLECALCIFEROL 25 MCG (1000 IU) TABLET PO SCH (07:53)
[2021-12-13] MEDS: CLOPIDOGREL 75 MG TAB PO SCH (07:53)
--- NOTE | 2021-12-13 11:58 | P.PN ---
Subjective This is a 66 year old male with a past medical history of hypertension, dyslipidemia, paroxysmal atrial fibrillation on Xarelto, supraventricular tac hycardia, Previous cardioversion in 2013, prior ablation in [address] [facility], coronary artery disease with prior PCI x 2 to LAD in July 2020, obstructive sleep apnea uses CPAP. He follows with Dr. Fenton at [facility]. We have been consulted for atrial fibrillation with RVR. Patient presents to the emergency department with complaints of sudden onset right-sided chest pain. This started yesterday, he states it was getting worse throughout the day. Radiating to his neck and back. Non-exertional. Aggravated by taking deep breath. He had associated palpitations and shortness of breath. He denies lightheadedness, dizziness, syncope or near syncope. On arrival to the emergency department he was noted to be in atrial fibrillation with rapid ventricular response HR 120s. He was given IV Cardizem 10mg bolus and started on a Cardizem drip. He remains in atrial fibrillation with HR 80s-low 100s. 12/13/21 Yesterday afternoon before dicharge. patient went back into atrial fibrillation with rapid ventricular response heart rate in the 150s around 5:30 PM. Discharge was cancelled. Metoprolol tartrate was increased to 100mg BID Patient seen and examined at bedside, no acute distress. Telemetry reviewed patient continues to maintain atrial fibrillation rates are controlled. Echocardiogram revealed an EF of 4045% trace mitral regurgitation, no significa nt wall motion abnormalities. Patient's heart rates have been controlled in the 80s-90s off Cardizem. Reviewed findings with Dr. Olsen. PHYSICAL EXAMINATION Vitals reviewed CONSTITUTIONAL: No apparent distress. HEENT: Neck Supple. No JVD. CHEST EXAMINATION: Lungs are clear to auscultation. No chest wall tenderness is noted on palpation or with deep breathing. HEART EXAMINATION: Irregular rate and rhythm. S1, S2 heard. No murmurs, gallops or rub. ABDOMEN: Soft, nontender. Positive bowel sounds. EXTREMITIES: 2+ peripheral pulses, no lower extremity edema and no calf tenderness. NEUROLOGIC EXAMINATION: Patient is awake, alert and oriented x3. ASSESSMENT Paroxysmal atrial fibrillation with rapid ventricular response, on Xarelto Chest pain is atypical, acute coronary syndrome has ruled out with negative cardiac enzymes. Chest pain is likely due to atrial fibrillation with RVR. History of supraventricular tachycardia History of prior cardioversion in 2013 and prior ablation in 2016 Hypertension Dyslipidemia Coronary artery disease status post prior PCI to his LAD in July 2020 Obstructive sleep apnea PLAN Continue metoprolol tartrate 100mg BID Would recommend stopping Plavix due to stent being placed in July 2020, but we will have the patient follow up with his primary corporate affairs manager for decision Continue anticoagulation with Xarelto Continue home amlodipine, statin, lisinopril From a cardiology perspective, patient is stable to be discharged home today with close follow up with his cardilogist Dr. Fenton Nurse practitioner note has been reviewed by physician. Signing provider agrees with the documented findings, assessment, and plan of care. Objective - Vital Signs Vital signs: Vital Signs Temp 97.6 F 12/13/21 03:28 Pulse 96 12/13/21 07:50 Resp 16 12/13/21 07:50 BP 132/60 12/13/21 07:50 Pulse Ox 98 12/13/21 07:50 Intake & Output 12/12/21 12/13/21 12/13/21 18:59 06:59 18:59 Intake Total 350 10 0 Balance 350 10 0 Weight 135.171 kg Intake: IV 10 0.9 10 Intake, IV Titration 0 Amount Diltiazem 125 mg In 0 Sodium Chloride 0.9% 100 ml @ 5 MG/HR 5 mls/hr IV .Q24H RYLAN Rx#:[id number] Oral 350 0 Other: Voiding Method Toilet # Voids 1 - Labs CBC & Chem 7: 12/12/21 05:03 12/12/21 05:03
[2021-12-13 12:05] VITALS: BP 139/89; PULSE 85
--- NOTE | 2021-12-13 13:21 | P.DS ---
Providers Date of admission: 12/13/21 08:56 Expected date of discharge: 12/13/21 Attending physician: Suri Blankenship MD Consults: 12/11/21 20:26 Consult Physician Urgent Consulting Provider: [facility] Consult Reason/Comments: afib with rvr Do you want consulting provider notified?: Yes Primary care physician: [facility] Course: 66 year old male with hypertension, atrial fibrillation status post ablation, CAD, PEREZ Patient comes in due to sudden onset right-sided chest pain was getting worse throughout the day associated with palpitations. He otherwise denies any dizziness lightheadedness headache changes in vision or hearing or any new focal neurologic deficits Patient reports first diagnosed with atrial fibrillation back in 2012 when he had episodes of supraventricular tachycardia and was controlled with medications but then later on in 2015 he had an ablation done since then he had no problems with atrial fibrillation he's been on CPAP to control her is PEREZ symptoms. Back in July 2020 he had chest pain and was found to have coronary artery disease requiring stents to his LAD Back in July 2021 he had a thorough cardiac workup for left heart cath was done and everything seemed to be stable Today he is presenting with sudden onset right-sided chest pain getting worse throughout the day felt like sharp chest pain radiates to the neck and back was getting worse with deep breaths. Upon arrival to the hospital as the pain was not subsiding he was found to have atrial fibrillation with rapid ventricular response. Patient claims to be compliant with all his medications. He denies any tobacco smoking or recreational drugs he admits to occasional alcohol intake. Initial workup in the ED was overall unremarkable, troponins negative Patient was examined in the emergency department. Patient was transitioned out of the Cardize drip at this time the patient is okay to be discharged from office technology instructor perspective. He is asked to continue with metoprolol tartrate 100 mg twice a day, cardio recommending to stop Plavix however deferred decision to patient's primary office technology instructor. Patient to continue with anticoagulation and continue amlodipine + lisinopril. Patient Condition at Discharge: Stable Plan - Discharge Summary Discharge Rx Participant: No New Discharge Prescriptions: New Metoprolol Tartrate [Lopressor] 100 mg PO BID@0700,1700 #30 tab Continue Rivaroxaban [Xarelto] 20 mg PO HS Fenofibrate Nanocrystallized [Fenofibrate] 145 mg PO HS Multivitamins, Thera [Multivitamin (formulary)] 1 tab PO DAILY amLODIPine [Norvasc] 10 mg PO DAILY Potassium Chloride ER [K-Dur 10] 10 meq PO DAILY Folic Acid 1 mg PO DAILY Clopidogrel Bisulfate [Plavix] 75 mg PO DAILY Tamsulosin HCl [Flomax] 0.4 mg PO DAILY Vitamin E (Dl,Tocopheryl Acet) [Vitamin E] 1,000 unit PO DAILY Rosuvastatin [Crestor] 20 mg PO HS Nitroglycerin Sl Tabs [Nitrostat] 0.4 mg SUBLINGUAL Q5M PRN PRN Reason: Chest Pain Citalopram Hydrobromide [CeleXA] 40 mg PO HS lisinopriL [Zestril] 20 mg PO DAILY Cholecalciferol [Vitamin D3 (25 Mcg = 1000 Iu)] 25 mcg PO DAILY Magnesium Oxide [Magox 400] 400 mg PO HS Changed Metoprolol Tartrate [Lopressor] 100 mg PO BID 30 Days #60 tab Discontinued Metoprolol Tartrate [Lopressor] 50 mg PO HS Discharge Medication List Clopidogrel Bisulfate [Plavix] 75 mg PO DAILY 08/28/20 [History] Fenofibrate Nanocrystallized [Fenofibrate] 145 mg PO HS 08/28/20 [History] Folic Acid 1 mg PO DAILY 08/28/20 [History] Multivitamins, Thera [Multivitamin (formulary)] 1 tab PO DAILY 08/28/20 [History] Potassium Chloride ER [K-Dur 10] 10 meq PO DAILY 08/28/20 [History] Rivaroxaban [Xarelto] 20 mg PO HS 08/28/20 [History] Tamsulosin HCl [Flomax] 0.4 mg PO DAILY 08/28/20 [History] amLODIPine [Norvasc] 10 mg PO DAILY 08/28/20 [History] Vitamin E (Dl,Tocopheryl Acet) [Vitamin E] 1,000 unit PO DAILY 10/16/20 [History] Nitroglycerin Sl Tabs [Nitrostat] 0.4 mg SUBLINGUAL Q5M PRN 12/30/20 [History] Rosuvastatin [Crestor] 20 mg PO HS 12/30/20 [History] lisinopriL [Zestril] 20 mg PO DAILY 08/30/21 [History] Cholecalciferol [Vitamin D3 (25 Mcg = 1000 Iu)] 25 mcg PO DAILY 12/11/21 [History] Citalopram Hydrobromide [CeleXA] 40 mg PO HS 12/11/21 [History] Magnesium Oxide [Magox 400] 400 mg PO HS 12/11/21 [History] Metoprolol Tartrate [Lopressor] 100 mg PO BID 30 Days #60 tab 12/13/21 [Rx] Metoprolol Tartrate [Lopressor] 100 mg PO BID@0700,1700 #30 tab 12/13/21 [Rx] Follow up Appointment(s)/Referral(s): Alan Calix MD [Primary Care Provider] - 1-2 days Patel Fenton MD [REFERRING] - 1 Week Patient Instructions/Handouts: A-fib (Atrial Fibrillation) (DC) Discharge Disposition: HOME SELF-CARE
== END 2021-12-13 14:58 | disposition home or self-care (01) | DRG 309 ==
LOC: EC 15:20 → 6NMEDSUR 20:26 → 3SCARD 20:41 → OBSVTOIN 12-13 08:56
PROVIDERS: ADMIT Internal Medicine; ATTEND Internal Medicine
DX: I48.0 Paroxysmal atrial fibrillation (principal); Q61.3 Polycystic kidney, unspecified; L03.116 Cellulitis of left lower limb; L03.115 Cellulitis of right lower limb; Z68.41 Body mass index [BMI] 40.0-44.9, adult; R07.89 Other chest pain; I25.10 Atherosclerotic heart disease of native coronary artery without angina pectoris; Z20.822 Contact with and (suspected) exposure to COVID-19; E66.01 Morbid (severe) obesity due to excess calories; I10 Essential (primary) hypertension; G47.33 Obstructive sleep apnea (adult) (pediatric); I34.0 Nonrheumatic mitral (valve) insufficiency; E78.5 Hyperlipidemia, unspecified; Z95.5 Presence of coronary angioplasty implant and graft; Z96.651 Presence of right artificial knee joint; Z88.1 Allergy status to other antibiotic agents; Z88.2 Allergy status to sulfonamides; Z79.01 Long term (current) use of anticoagulants; Z79.02 Long term (current) use of antithrombotics/antiplatelets; Z79.899 Other long term (current) drug therapy; Z86.79 Personal history of other diseases of the circulatory system; Z86.14 Personal history of Methicillin resistant Staphylococcus aureus infection; Z83.3 Family history of diabetes mellitus; Z82.5 Family history of asthma and other chronic lower respiratory diseases; Z82.49 Family history of ischemic heart disease and other diseases of the circulatory system
CPT/HCPCS: 36415; 71275; 80048; 80053; 83690; 83735; 83880; 84443; 84484; 85025; 85610; 85730; 87635; 93005; 93306

== ENCOUNTER → 2023-12-03 | Outpatient (CLI) | payer OTHER ==
[2023-12-03 09:03] VITALS: BP 142/72; PULSE 89; RESP 15; TEMP 98.2
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
== END ==
LOC: PNWHC3 08:27
PROVIDERS: ATTEND Anesthesiology
DX: M47.816 Spondylosis without myelopathy or radiculopathy, lumbar region (principal); M54.51 Vertebrogenic low back pain; M48.061 Spinal stenosis, lumbar region without neurogenic claudication; M51.36 Other intervertebral disc degeneration, lumbar region; Z88.2 Allergy status to sulfonamides; Z91.048 Other nonmedicinal substance allergy status
CPT/HCPCS: 99211

== ENCOUNTER 2023-12-23 08:27 | Day surgery (SDC) | payer OTHER ==
[2023-12-19 09:20] VITALS: BMI 43.0
[2023-12-23 09:15] VITALS: PULSE 69; RESP 18; TEMP 98
[2023-12-23] MEDS ORDERED: DEXAMETHASONE SOD PHOSPHATE 10 MG/ML 1 ML VIAL ONE (09:49)
[2023-12-23] MEDS ORDERED: IOPAMIDOL M300 15ML VIAL ONE (09:49)
[2023-12-23] MEDS ORDERED: ROPIVACAINE 5MG/ML 20ML VIAL ONE (09:49)
--- NOTE | 2023-12-23 10:21 | P.PCN ---
Description of Procedure: PREOPERATIVE DIAGNOSIS: 1-Lumbar radiculopathy . 2-lumbar degenerative disc disease. 3-lumbar spondylosis with lumbar facet arthropathy without myelopathy POSTOPERATIVE DIAGNOSIS: 1-lumbar radiculopathy. 2-lumbar degenerative disc disease. 3-lumbar spondylosis with facet arthropathy without myelopathy PROCEDURE 1. Transforaminal epidural steroid injection under fluoroscopic guidance at RIGHT L4-5 level. (Fluoroscopy images stored on file in the radiology Department ) 2. Lumbar epidurogram . ANESTHESIA: Local with 1% lidocaine 5 ml. subcutaneously. Continuous pulse ox, EKG, blood pressure and verbal communication was maintained with the patient. EBL: Minimal PROCEDURE INDICATION: The patient with low back pain and radiculopathy symptoms unresponsive to conservative treatment. The patient was seen and identified in the preoperative area. Risks, benefits, complications, and alternatives were discussed with the patient. The patient agreed to proceed with the procedure and signed the consent. IV was started, and vital signs were stable. PROCEDURE DESCRIPTION / TECHNIQUE: After getting consent, patient was taken to the OR and time out was completed. The patient was placed in the prone position on procedure table and a pillow was placed under the abdomen to reduce lumbar lordosis. The lumbosacral area was prepped and draped in the usual sterile fashion. Critical pause was taken. After injecting 5 mL of plain 1% lidocaine subcutaneously, under oblique view of the fluoroscope, a 22-gauge spinal needle was introduced under the tunnel view of the fluoroscope on the RIGHT side and the needle was advanced so that the tip of the needle was at the posterior inferior quadrant of the intervertebral foramen at the lateral view of the fluoroscope and in the lateral third of the facet column in the AP view of the fluoroscope. Negative CSF, negative blood, negative paresthesia. After needle position confirmation by AP and cross table lateral view, 3 mL of Isovue-M 200 contrast was injected under continuous fluoroscope. No contrast was noted in the intrathecal or intravascular space. The epidurogram was noted. Again after repeated negative aspiration 2.5 mL solution was injected which consists 1.5 mL of normal saline mixed with 1 mL of 20mg dexamethasone. Needle was removed . At the end of the procedure, skin was cleansed, and bandages were applied. DISPOSITION / PLANS: No complication. The patient tolerated the procedure well. The patient was placed in a supine position and transferred to the recovery area in a stable condition for observation. There was no evidence of lower extremity motor or sensory deficit after the procedure. Patient was discharged from the recovery room after meeting discharge criteria. Home discharge instructions were given to the patient by the staff. The patient was reexamined prior to discharge. CONSIDER INTERLAMINAR GONZALO NEXT PROCEDURE.
[2023-12-23 10:30] VITALS: BP 161/96
--- NOTE | 2023-12-23 15:54 | FL ---
EXAMINATION TYPE: FL guided pain mgmt statistic DATE OF EXAM: 12/23/2023 FLUOROSCOPY Fluoroscopy time of 1 minute 7 seconds was used during an intervention procedure of the lumbar spine. 2 image/s document/s the procedure. DAP- [id number] mGycm2.
== END 2023-12-23 10:33 | disposition home or self-care (01) ==
LOC: ORPAIN 08:27
PROVIDERS: ATTEND Pain Medicine Interventional Pain Medicine
DX: M51.16 Intervertebral disc disorders with radiculopathy, lumbar region (principal); M47.26 Other spondylosis with radiculopathy, lumbar region; I97.191 Other postprocedural cardiac functional disturbances following other surgery; Z88.2 Allergy status to sulfonamides; Z79.01 Long term (current) use of anticoagulants; Z79.899 Other long term (current) drug therapy
CPT/HCPCS: 64483; J1100; Q9967; J2795

== ENCOUNTER → 2024-01-07 | Outpatient (CLI) | payer OTHER ==
[2024-01-07 09:18] VITALS: BP 132/68; PULSE 79; RESP 15; TEMP 98.6
--- NOTE | 2024-01-07 13:56 | P.PAINPG ---
PQRS Measure Charge Sheet Comment: HISTORY OF PRESENT ILLNESS: A 68 yr old male presents today w severe and chronic LBP x 1 yr secondary to stenosis, DDD, spondylosis and facet arthropathy without myelopathy for evaluation s/p R TFESI L4-L5 #1. Pt states he experienced 0 % pain relief x 3 wks s/p procedure. Pt states pain level is provoked at 8 /10 in intensity, constant, localized in the lower lumbar spine, predominantly axial, dull in character w occasional shooting pain towards the buttocks R > L. Pain is provoked by sitting/ walking/ standing for periods > 20 min. Pain is alleviated by PT integrated w massage x 6 wks which ended in May 2023, physician guided stretches daily since May 2023, alternating heat & ice, medications,topical, repositioning and rest. Oswestry axial pain score at 32. Discussed bruising identified on R lumbar spine but pt disinterested in seeing it or acknowledging it. Interventional procedures include R TFESI L4-L5 x1 Medications include Tyl, Icy Hot REVIEW OF ORGAN SYSTEMS: CONSTITUTIONAL: No fevers or chills. No recent weight loss. NEUROLOGICAL: + numbness and tingling along the distal extremities. No seizure disorders or headaches. MUSCULOSKELETAL: + pain PSYCHIATRIC: Denies current depression or suicidal thoughts. Physical Examinations : Constitutional : Cooperative , not in acute distress . Neurologic : Cranial nerve II to XII intact. No focal neurological deficits. Psychiatric : alert & oriented x 3. Matching mood & appropriate affect. Judgment & insight intact. Musculoskeletal : Cervical Spine Motor strength in the deltoid and biceps: Normal right side. Normal Left side Motor strength biceps and the wrist extensors: Normal right side . Normal left side Motor strength in the triceps muscle: Normal right side. Normal left side Deep tendon reflexes: Normal at the biceps. Normal at Brachioradialis. Normal at triceps Vertebral body tenderness to deep palpation over Cervical facet loading test: positive bilaterally Spurling test: positive bilaterally Neck distraction test: positive bilaterally Demarco sign: positive bilaterally Lumbar spine +R ecchymosis over L5, S1 paraspinal muscles Motor strength lower extremities ,thigh and legs 5/5 Right side , 5/5 Left side Deep tendon reflexes : Normal Knee J erk. Normal Ankle Jerk Vertebral body tenderness Webber Test positive Lumbar facet Loading Test: positive Right / positive Left BL L4-L5 L5-S1 Range of motion of the lumbar spine Flexion 30 degrees, extension 10 degrees Straight Leg Raise test: Left/ Right positive at 30 degrees Hasmukh test: positive right / positive left. Severe tenderness over the Sacroiliac joint on the Right / Left sides Gaenslen test: positive bilaterally Seated flexion test: positive bilaterally. Sacral spine : Severe tenderness over the Sacroiliac joint: right side / left side Range of motion: Flexion of the lumbar spine <60 degrees Range of motion: Extension of the lumbar spine <20 degrees Gaenslen's Test positive Hasmukh test: positive right side / left side Thigh Thrust Test Sacral Thrust Test Imaging: MRI noncontrast of the lumbar spine from 09/02/22 reviewed Assessment/ Plan : Lumbar stenosis, lumbar DDD Recommendation of BL MBB L3-L5 #1. May need a series of injections, up until RFA, for optimal pain relief. Risks, benefits of procedure discussed and patient verbalized understanding. Admits to anti- coagulant use or medical history of diabetes. Protocol for discontinuation/ continuation of medications theo procedure discussed. Minimal anesthesia including Fentanyl and Versed if clinically indicated. All questions answered. I have spent greater than 30 minutes on patient care today. Dr Bland was available by phone for the evaluation of this patient. The time was used to review the medical records including relevant urine studies and Prescription history (MAPs), review of the available imaging, evaluation and examination of t he patient, coordination of care with the medical staff and if applicable referring physicians, as well as creation of the medical record PQRS Narrative: Hx Alcohol Use (MH) Yes Home Medications: Ambulatory Orders Clopidogrel Bisulfate [Plavix] 75 mg PO DAILY 08/28/20 Fenofibrate Nanocrystallized [Fenofibrate] 145 mg PO HS 08/28/20 Folic Acid 1 mg PO DAILY 08/28/20 Multivitamins, Thera [Multivitamin (formulary)] 1 tab PO DAILY 08/28/20 Potassium Chloride ER [K-Dur 10] 10 meq PO DAILY 08/28/20 Rivaroxaban [Xarelto] 20 mg PO HS 08/28/20 Vitamin E (Dl,Tocopheryl Acet) [Vitamin E] 1,000 unit PO DAILY 10/16/20 Nitroglycerin Sl Tabs [Nitrostat] 0.4 mg SUBLINGUAL Q5M PRN 12/30/20 Rosuvastatin [Crestor] 40 mg PO HS 12/30/20 Cholecalciferol [Vitamin D3 (25 Mcg = 1000 Iu)] 25 mcg PO DAILY 12/11/21 Citalopram Hydrobromide [CeleXA] 40 mg PO HS 12/11/21 Magnesium Oxide [Magox 400] 400 mg PO HS 12/11/21 Metoprolol Tartrate [Lopressor] 100 mg PO BID 30 Days #60 tab 12/13/21 Furosemide [Lasix] 40 mg PO DAILY 12/19/23 Sacubitril/Valsartan [Entresto 24 mg-26 mg Tablet] 1 tab PO BID 12/19/23 Controlled Substance Measures - Controlled Substance Measures Is patient prescribed a controlled substance at discharge?: No
== END ==
LOC: PNWHC3 08:37
PROVIDERS: ATTEND Specialist
DX: M51.37 Other intervertebral disc degeneration, lumbosacral region (principal); M48.061 Spinal stenosis, lumbar region without neurogenic claudication; Z88.2 Allergy status to sulfonamides; Z88.1 Allergy status to other antibiotic agents
CPT/HCPCS: 99211

== ENCOUNTER → 2024-02-20 | Day surgery (SDC) | payer OTHER ==
[~2024-02-20] MED LIST changes: +MIDAZOLAM 2 MG/2 ML VIAL ONE; +ROPIVACAINE 5MG/ML 20ML VIAL ONE; +fentaNYL (PF) 50 MCG/ML 2 ML AMP ONE
[2024-02-20 09:14] VITALS: TEMP 97.8
[2024-02-20] MEDS: LACTATED RINGERS 1,000 ML IV ONE (09:15)
--- NOTE | 2024-02-20 09:42 | P.PCN ---
Date of Procedure: 02/20/24 Surgeon: Jenny Vela Pathology: none sent Condition: stable Disposition: PACU Description of Procedure: PREOPERATIVE DIAGNOSIS : 1- Lumbar spondylosis with Facet Arthropathy without myelopathy . 2- Lumber degenerative disc disease POSTOPERATIVE DIAGNOSIS: 1- Lumbar spondylosis with Facet Arthropathy without myelopathy . 2- Lumber degenerative disc disease PROCEDURE: Diagnostic bilateral L4 -5 , and L5-S1 medial branch block under fluoroscopy Physician: Jenny Vela MD ANESTHESIA: Local with 1% lidocaine;and IV moderate conscious sedation by the anesthesia department EBL: Negligible COMPLICATION: None. PROCEDURE INDICATION: Chronic low back pain secondary to Facet arthropathy unresponsive to conservative treatment. PROCEDURE DESCRIPTION: the patient was seen and identified in the preop holding area , risks and benefits and possible complications of the procedure and alternatives were discussed with the patient, and the patient agreed to proceed with the procedure and signed the consent. IV was started and vital signs monitored during the procedure and fluoroscopy was used to maximize the benefit and accuracy of the needle placement, sedation was given to decrease patient anxiety, patient was taken to the procedure room and placed in prone position vital signs monitored. The patient was brought into the procedure room and placed in prone position. Skin was prepped with Chloraprep and draped in a sterile manner. Lidocaine 1% was used to numb the skin up at the target points that were chosen as follows: at the L5-S1 level which corresponds to the dorsal ramus of L5 the target points were at the superior medial aspect of the sacral ala on each side of the spine on the AP view of fluoroscopy, and for the L3 and L4 medial branches the target points were the connection between the transverse process and the superior articular process of L4 and L5 respectively on the oblique views of fluoroscopy. I used 22-gauge 5 inch Quincke spinal needles for this procedure and after contacting bone at the target points mentioned above I injected 1 mL of Ropivacaine 0.5% PF in each needle . Patient tolerated procedure well. At the end of the procedure the needles removed and a bandage applied after the skin was cleaned the cleaning solution. patient was then taken to the recovery room in stable condition and monitored in the recovery room for 20-30 minutes and discharged home in stable condition after discharge criteria met . A copy of the needle placement picture was saved to the C-arm machine.
[2024-02-20] MEDS: IV FLUID CONTINUATION 1,000 ML IV ONE (09:46)
[2024-02-20 09:58] VITALS: RESP 14
--- NOTE | 2024-02-20 09:59 | FL ---
Fluoroscopy INDICATION: Pain FINDINGS: Fluoroscopy time: 7.3 seconds. Total dose area product (DAP) in uGy*m?, mGy*cm? (or similar): 0.36391 Images obtained: 3. IMPRESSION: 1. Documentation of fluoroscopy.
[2024-02-20 10:43] VITALS: BP 124/67; PULSE 76
== END ==
LOC: ORPAIN 08:53
PROVIDERS: ATTEND Anesthesiology
DX: M47.816 Spondylosis without myelopathy or radiculopathy, lumbar region (principal); G89.29 Other chronic pain; M51.36 Other intervertebral disc degeneration, lumbar region; Z79.01 Long term (current) use of anticoagulants; Z79.02 Long term (current) use of antithrombotics/antiplatelets; Z88.1 Allergy status to other antibiotic agents
CPT/HCPCS: 64493; 64494 ×2; 99152; J2250; J3010; J2795

== ENCOUNTER 2024-03-09 13:43 | Observation (INO) | payer MEDICARE, OTHER ==
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
[2024-03-09] MEDS: ACETAMINOPHEN TAB 325 MG TAB PO STA (14:26)
[2024-03-09 14:40] LABS: Basophils % (A) 1 %; Eosinophils # (A) 0.1 k/uL (0-0.7); Eosinophils % (A) 2 %; HCT 46.8 % (39.0-53.0); Lymphocytes # (A) 0.9 k/uL (1.0-4.8); Lymphocytes % (A) 19 %; MCH 32.1 pg (25.0-35.0); MCV 100.2 fL (80.0-100.0); Macrocytosis Slight; Mean Platelet Volume 7.8; Monocytes # (A) 0.4 k/uL (0-1.0); Monocytes % (A) 8 %; Neutrophils # (A) 3.1 k/uL (1.3-7.7); Neutrophils % (A) 67 %; Platelet Count 288 k/uL (150-450); RBC 4.68 m/uL (4.30-5.90); WBC 4.7 k/uL (3.8-10.6)
[2024-03-09 14:58] LABS: ALT 35 U/L (4-49); AST 38 U/L (17-59); African American GFR (CKD) >90 (>60 ml/min/1.73 sqM); Albumin 4.3 g/dL (3.5-5.0); Alkaline Phosphatase 29 U/L (38-126); Anion Gap 6 mmol/L; Blood Urea Nitrogen 17 mg/dL (9-20); Calcium 9.6 mg/dL (8.4-10.2); Carbon Dioxide 28 mmol/L (22-30); Chloride 109 mmol/L (98-107); Glucose 85 mg/dL (74-99); Non-African American GFR(CKD) >90 (>60 ml/min/1.73 sqM); Sodium 143 mmol/L (137-145); Total Bilirubin 0.6 mg/dL (0.2-1.3); Total Protein 7.3 g/dL (6.3-8.2)
[2024-03-09] MEDS ORDERED: ACETAMINOPHEN TAB 325 MG TAB PO PRN (15:24)
[2024-03-09] MEDS ORDERED: NALOXONE 0.4 MG/ML 1 ML VIAL IV PRN (15:24)
[2024-03-09] MEDS: HYDROmorphone 0.5 MG/0.5 ML SYRINGE IVP STA (16:24)
[2024-03-09] MEDS: ONDANSETRON 4 MG/2 ML VIAL IVP STA (16:24)
[2024-03-09] MEDS: PIPERACILLIN-TAZOBACTAM 3.375 GM in SODIUM CHLORIDE 0.9% 100 ML IVPB STA (16:25)
[2024-03-09] MEDS ORDERED: HYDROcodone/APAP 5-325MG 1 EACH TAB PO PRN (19:01)
[2024-03-09] MEDS ORDERED: ONDANSETRON 4 MG/2 ML VIAL IVP PRN (19:01)
[2024-03-09] MEDS ORDERED: bisacodyL 5 MG TABLET.DR PO PRN (19:01)
[2024-03-09] MEDS ORDERED: MELATONIN 3 MG TABLET PO PRN (19:01)
[2024-03-09] MEDS ORDERED: NITROGLYCERIN SL TABS 0.4 MG TAB SUBLINGUAL PRN (19:03)
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
[2024-03-09] MEDS: RIVAROXABAN 20 MG TAB PO SCH (21:01)
[2024-03-09] MEDS: ATORVASTATIN 80 MG TAB PO SCH (21:01)
[2024-03-09] MEDS: FENOFIBRATE 160 MG TAB PO SCH (21:01)
[2024-03-09] MEDS: METOPROLOL SUCCINATE (ER) 25 MG TAB.ER.24H PO SCH (21:01)
[2024-03-09] MEDS: CITALOPRAM HYDROBROMIDE 20 MG TAB PO SCH (21:01)
[2024-03-09] MEDS: MAGNESIUM OXIDE 400 MG TAB PO SCH (21:01)
[2024-03-09] MEDS: SACUBITRIL/VALSARTAN 49 MG-51 MG TABLET PO SCH (21:02)
[2024-03-09] MEDS: FUROSEMIDE 10 MG/ML 4 ML VIAL IV STA (21:02)
[2024-03-09] MEDS: HYDROmorphone 0.5 MG/0.5 ML SYRINGE IVP PRN (21:24)
[2024-03-10] MEDS: PIPERACILLIN-TAZOBACTAM 3.375 GM in SODIUM CHLORIDE 0.9% 100 ML IVPB SCH (00:42)
[2024-03-10 08:45] LABS: HCT 45.4 % (39.0-53.0); HGB 14.1 gm/dL (13.0-17.5); MCH 31.8 pg (25.0-35.0); MCHC 31.1 g/dL (31.0-37.0); MCV 102.3 fL (80.0-100.0); Macrocytosis Slight; Mean Platelet Volume 7.6; Platelet Count 259 k/uL (150-450); RBC 4.44 m/uL (4.30-5.90); RDW 13.7 % (11.5-15.5)
[2024-03-10] MEDS ORDERED: LEUCOVORIN 5 MG TAB PO SCH (09:00)
[2024-03-10] MEDS ORDERED: ENOXAPARIN 40 MG/0.4 ML SYRINGE SQ SCH (09:00)
[2024-03-10] MEDS ORDERED: FUROSEMIDE 40 MG TAB PO SCH (09:00)
[2024-03-10 09:02] LABS: African American GFR (CKD) >90 (>60 ml/min/1.73 sqM); Anion Gap 3 mmol/L; Blood Urea Nitrogen 20 mg/dL (9-20); Carbon Dioxide 32 mmol/L (22-30); Chloride 104 mmol/L (98-107); Glucose 99 mg/dL (74-99); Non-African American GFR(CKD) >90 (>60 ml/min/1.73 sqM); Potassium 3.6 mmol/L (3.5-5.1); Sodium 139 mmol/L (137-145)
[2024-03-10] MEDS: FOLIC ACID 1 MG TAB PO SCH (09:05)
[2024-03-10] MEDS: POTASSIUM CHLORIDE ER 10 MEQ TAB.ER.PRT PO SCH (09:05)
[2024-03-10] MEDS: FUROSEMIDE 10 MG/ML 4 ML VIAL IV STA (09:05)
[2024-03-10] MEDS: MULTIVITAMINS, THERA 1 EACH TAB PO SCH (09:05)
[2024-03-10] MEDS: CLOPIDOGREL 75 MG TAB PO SCH (09:06)
[2024-03-10] MEDS: VITAMIN E (DL,TOCOPHERYL ACET) 400 UNIT (180 MG) CAP PO SCH (09:06)
[2024-03-10 09:51] VITALS: BP 133/80; PULSE 64; RESP 18; TEMP 97.4
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
--- NOTE | 2024-03-10 13:26 | P.DS ---
Providers Date of admission: 03/09/24 15:50 Expected date of discharge: 03/10/24 Attending physician: Ade Chan DO Primary care physician: [facility] [place] Course: Discharge Diagnosis: Bilateral lymphedema exacerbation Chronic venous stasis right lower extremity HFrEF with ejection fraction 40 to 45% Paroxysmal atrial fibrillation Hypertension Dyslipidemia History of coronary artery disease Hospital Course: Patient is a 68-year-old male with a history of atrial fibrillation, coronary artery disease, hypertension, dyslipidemia, chronic bilateral lower extremity cellulitis with lymphedema who presented to the hospital with complaints of worsening bilateral lower extremity cellulitis. Patient initially was seen at urgent care on 03/05/2024 and received IM antibiotics and was discharged home with doxycycline and cefdinir. On arrival to the ER here patient was afebrile but vitals were remarkable for blood pressure of 160/79. Laboratory analysis included CBC and basic metabolic profile which were essentially unremarkable. Patient was given a dose of Zosyn in the emergency department as well as Dilaudid and Zofran. Arrangements were made for admission. The emergency department consulted Dr. Wisdom which was canceled as the patient did not have stomach symptoms and legs do not appear red. He was found to have a worsening of his chronic lymphedema and uncontrolled pain in his lower extremities. He was started on IV Lasix and Chaitanya wraps were complied. The next morning his swelling was significantly improved and the legs were less red. He did have a right lower extremity venous Doppler completed which was negative for DVT. He was determined stable for discharge home. I had a ben discussion with the patient about participating in lymphedema physical therapy to decrease reoccurrences of this swelling and he is in agreement. Follow-up: Patient will complete his oral antibiotics of doxycycline and cefdinir, he will take his Lasix 40 mg twice daily for the next 4 days, he will have a 3-day supply of Swanquarter for pain. He was told to wear his compression stocking or Chaitanya wrap to help with the lower extremity edema. He will follow-up with his primary care provider in 2 to 3 days Patient seen and examined at bedside. Still having some pain in his lower extremity. Feeling slightly better than yesterday. Denies any chest pain or shortness of breath. We discussed plan of care and patient is in agreement with discharge home. Vital signs reviewed and stable. General: Nontoxic, no distress, appears at stated age Cardiovascular: S1S2 reg, no murmur, positive posterior tibial pulse bilateral, Lungs: CTA bilateral, no rhonchi, no rales, no accessory muscle use Abdominal: Soft, nontender to palpation, no guarding, no appreciable o rganomegaly Ext: No gross muscle atrophy, significant nonpitting edema bilateral lower extremities right greater than left without significant warmth, trace amounts of erythema on the right which appear consistent with chronic venous stasis changes no contractures Neuro: CN II-XI grossly intact, no focal neuro deficits Psych: Alert, oriented, appropriate affect A total of 42 minutes of time were spent preparing this complex discharge summary. Patient was discharged on 03/10/24. This dictation was prepared using [employer] voice recognition software. Though every attempt is made to correct errors during dictation some may still exist. Patient Condition at Discharge: Stable Plan - Discharge Summary New Discharge Prescriptions: New Furosemide [Lasix] 40 mg PO HS #4 tablet HYDROcodone/APAP 5-325MG [[place] 5-325] 1 - 2 each PO Q6HR PRN #20 tab PRN Reason: Moderate Pain (Scale 4 To 6) Continue Rivaroxaban [Xarelto] 20 mg PO HS Fenofibrate Nanocrystallized [Fenofibrate] 145 mg PO HS Multivitamins, Thera [Multivitamin (formulary)] 1 tab PO DAILY Potassium Chloride ER [K-Dur 10] 10 meq PO DAILY Folic Acid 1 mg PO DAILY Clopidogrel Bisulfate [Plavix] 75 mg PO DAILY Vitamin E (Dl,Tocopheryl Acet) [Vitamin E] 1,000 unit PO DAILY Nitroglycerin Sl Tabs [Nitrostat] 0.4 mg SUBLINGUAL Q5M PRN PRN Reason: Chest Pain Citalopram Hydrobromide [CeleXA] 40 mg PO HS Furosemide [Lasix] 40 mg PO DAILY NIFEdipine XL [Procardia XL] 60 mg PO HS Sacubitril/Valsartan [Entresto 49 mg-51 mg Tablet] 1 tab PO BID metHOTREXate sodium [Methotrexate] 20 mg PO MO@2100 Rosuvastatin Calcium [Crestor] 40 mg PO HS Leucovorin 5 mg PO TU Cefdinir [Omnicef] 300 mg PO Q12HR Metoprolol Succinate (ER) [Toprol XL] 25 mg PO BID Cholecalciferol [Vitamin D3 (25 Mcg = 1000 Iu)] 25 mcg PO DAILY Magnesium Oxide [Magox 400] 400 mg PO HS Doxycycline Hyclate 100 mg PO Q12H Discharge Medication List Clopidogrel Bisulfate [Plavix] 75 mg PO DAILY 08/28/20 [History] Fenofibrate Nanocrystallized [Fenofibrate] 145 mg PO HS 08/28/20 [History] Folic Acid 1 mg PO DAILY 08/28/20 [History] Multivitamins, Thera [Multivitamin (formulary)] 1 tab PO DAILY 08/28/20 [History] Potassium Chloride ER [K-Dur 10] 10 meq PO DAILY 08/28/20 [History] Rivaroxaban [Xarelto] 20 mg PO HS 08/28/20 [History] Vitamin E (Dl,Tocopheryl Acet) [Vitamin E] 1,000 unit PO DAILY 10/16/20 [History] Nitroglycerin Sl Tabs [Nitrostat] 0.4 mg SUBLINGUAL Q5M PRN 12/30/20 [History] Cholecalciferol [Vitamin D3 (25 Mcg = 1000 Iu)] 25 mcg PO DAILY 12/11/21 [History] Citalopram Hydrobromide [CeleXA] 40 mg PO HS 12/11/21 [History] Magnesium Oxide [Magox 400] 400 mg PO HS 12/11/21 [History] Furosemide [Lasix] 40 mg PO DAILY 12/19/23 [History] NIFEdipine XL [Procardia XL] 60 mg PO HS 02/17/24 [History] Cefdinir [Omnicef] 300 mg PO Q12HR 03/09/24 [History] Doxycycline Hyclate 100 mg PO Q12H 03/09/24 [History] Leucovorin 5 mg PO TU 03/09/24 [History] Metoprolol Succinate (ER) [Toprol XL] 25 mg PO BID 03/09/24 [History] Rosuvastatin Calcium [Crestor] 40 mg PO HS 03/09/24 [History] Sacubitril/Valsartan [Entresto 49 mg-51 mg Tablet] 1 tab PO BID 03/09/24 [History] metHOTREXate sodium [Methotrexate] 20 mg PO MO@2100 03/09/24 [History] Furosemide [Lasix] 40 mg PO HS #4 tablet 03/10/24 [Rx] HYDROcodone/APAP 5-325MG [[place] 5-325] 1 - 2 each PO Q6HR PRN #20 tab 03/10/24 [Rx] Follow up Appointment(s)/Referral(s): Alan Calix MD [Primary Care Provider] - 1-2 days Activity/Diet/Wound Care/Special Instructions: Activity: Keep legs elevated, wear chaitanya wraps of compression stocking when up and ambulating Diet: Low Sodium Special Instructions: Take lasix twice daily for the next 4 days. Complete your doxycyclin and cefdinir Take temperature daily Please discuss with your primary care provider about a prescription to the lymhedema clinic. Lymphedema Clinic Lymphedema treatment at [facility] offers lymphedema treatment at our [place] and [place] [facility] locations. Our certified lymphedema therapists will work with you to create a customized treatment plan to help you manage your symptoms and meet the following goals: Reduce the size of the affected limb Decrease the pain associated with excessive limb size Improve the function and mobility of the limb Decrease the risk for infection or hospitalization Self-management of symptoms Treatment plans include: Patient Education: Patients will be educated on good hygiene and skin care, precautions and prevention. Therapeutic Exercises: Patients will learn exercises specific to their needs that will keep the fluid moving within the body and reduce swelling. Manual Lymph Drainage: A massage technique that opens lymphatic pathways and gently moves fluid to areas where it can be reabsorbed into the system. Compression Therapy: Compression is used to move fluid out of the affected limb and decrease swelling. Includes multi-layer bandaging, where short stretch bandages are used to create levels of pressure to move fluid out of the swollen limb. Compression garments, such as sleeves and stockings, can be worn once the fluid is moved out of the swollen limb to help control swelling. [facility] [address] [place] [address] PHONE Discharge Disposition: HOME SELF-CARE
[2024-03-16] MEDS ORDERED: LEUCOVORIN 5 MG TAB PO SCH (09:00)
== END 2024-03-10 14:13 | disposition home or self-care (01) ==
LOC: EC 13:43 → 6NMEDSUR 15:50
PROVIDERS: ADMIT Internal Medicine; ATTEND Internal Medicine
DX: I89.0 Lymphedema, not elsewhere classified (principal); L03.115 Cellulitis of right lower limb; L03.116 Cellulitis of left lower limb; Z79.01 Long term (current) use of anticoagulants; I48.0 Paroxysmal atrial fibrillation; Z90.49 Acquired absence of other specified parts of digestive tract; Z98.1 Arthrodesis status; I11.0 Hypertensive heart disease with heart failure; I50.22 Chronic systolic (congestive) heart failure; E78.5 Hyperlipidemia, unspecified; I25.10 Atherosclerotic heart disease of native coronary artery without angina pectoris; G47.30 Sleep apnea, unspecified; I87.8 Other specified disorders of veins
CPT/HCPCS: 96365; 96366; 96375; 96367 ×2; 96376 ×2; 99285; 36415; 83880; 80053; 80048; 83605; 85025; 85027; 87040; 93971; G0378 ×2; J2543 ×2; J1940 ×2; J2405; J1170 ×2

== ENCOUNTER → 2024-03-24 | Outpatient (CLI) | payer MEDICARE ==
--- NOTE | 2024-03-24 13:15 | P.PAINPG ---
PQRS Measure Charge Sheet Comment: HISTORY OF PRESENT ILLNESS: A 68 yr old male presents today w severe and chronic LBP x 1 yr secondary to stenosis, DDD, spondylosis and facet arthropathy without myelopathy for evaluation s/p BL MBB L3-L5 #1. Pt states he experienced 100 % pain relief x 24 hrs s/p procedure. Pt states pain level is provoked at 6 /10 in intensity, constant, localized in the lower lumbar spine, predominantly axial, dull in character w occasional shooting pain towards the buttocks R > L. Pain is provoked by sitting/ walking/ standing for periods > 20 min. Pain is alleviated by PT integrated w massage x 6 wks which ended in May 2023, physician guided stretches daily since May 2023, alternating heat & ice, medications,topical, repositioning and rest. Oswestry axial pain score at 31. Interventional procedures include R TFESI L4-L5 x1, BL MBB L3-L5 x1 Medications include Tyl, Icy Hot REVIEW OF ORGAN SYSTEMS: CONSTITUTIONAL: No fevers or chills. No recent weight loss. NEUROLOGICAL: + numbness and tingling along the distal extremities. No seizure disorders or headaches. MUSCULOSKELETAL: + pain PSYCHIATRIC: Denies current depression or suicidal thoughts. Physical Examinations : Constitutional : Cooperative , not in acute distress . Neurologic : Cranial nerve II to XII intact. No focal neurological deficits. Psychiatric : alert & oriented x 3. Matching mood & appropriate affect. Judgment & insight intact. Musculoskeletal : Cervical Spine Motor strength in the deltoid and biceps: Normal right side. Normal Left side Motor strength biceps and the wrist extensors: Normal right side . Normal left side Motor strength in the triceps muscle: Normal right side. Normal left side Deep tendon reflexes: Normal at the biceps. Normal at Brachioradialis. Normal at triceps Vertebral body tenderness to deep palpation over Cervical facet loading test: positive bilaterally Spurling test: positive bilaterally Neck distraction test: positive bilaterally Demarco sign: positive bilaterally Lumbar spine Motor strength lower extremities ,thigh and legs 5/5 Right side , 5/5 Left side Deep tendon reflexes : Normal Knee Jerk. Normal Ankle Jerk Vertebral body tenderness Webber Test positive Lumbar facet Loading Test: positive Right / positive Left BL L4-L5 L5-S1 Range of motion of the lumbar spine Flexion 30 degrees, extension 10 degrees Straight Leg Raise test: Left/ Right positive at 30 degrees Hasmukh test: positive right / positive left. Severe tenderness over the Sacroiliac joint on the Right / Left sides Gaenslen test: positive bilaterally Seated flexion test: positive bilaterally. Sacral spine : Severe tenderness over the Sacroiliac joint: right side / left side Range of motion: Flexion of the lumbar spine <60 degrees Range of motion: Extension of the lumbar spine <20 degrees Gaenslen's Test positive Hasmukh test: positive right side / left side Thigh Thrust Test Sacral Thrust Test Imaging: MRI noncontrast of the lumbar spine from 09/02/22 reviewed Assessment/ Plan : Lumbar stenosis, lumbar DDD Recommendation of BL MBB L3-L5 #2. May need a series of injections, up until RFA, for optimal pain relief. Risks, benefits of procedure discussed and patient verbalized understanding. Admits to anti- coagulant use or medical history of diabetes. Protocol for discontinuation/ continuation of medications theo procedure discussed. Minimal anesthesia including Fentanyl and Versed if clinically indicated. All questions answered. I have spent greater than 30 minutes on patient care today. Dr Bland was available by phone for the evaluation of this patient. The time was used to review the medical records including relevant urine studies and Prescription history (MAPs), review of the available imaging, evaluation and examination of the patient, coordination of care with the medical staff and if applicable referring physicians, as well as creation of the medical record PQRS Narrative: Hx Alcohol Use (MH) Yes Home Medications: Ambulatory Orders Clopidogrel Bisulfate [Plavix] 75 mg PO DAILY 08/28/20 Fenofibrate Nanocrystallized [Fenofibrate] 145 mg PO HS 08/28/20 Folic Acid 1 mg PO DAILY 08/28/20 Multivitamins, Thera [Multivitamin (formulary)] 1 tab PO DAILY 08/28/20 Potassium Chloride ER [K-Dur 10] 10 meq PO DAILY 08/28/20 Rivaroxaban [Xarelto] 20 mg PO HS 08/28/20 Vitamin E (Dl,Tocopheryl Acet) [Vitamin E] 1,000 unit PO DAILY 10/16/20 Nitroglycerin Sl Tabs [Nitrostat] 0.4 mg SUBLINGUAL Q5M PRN 12/30/20 Cholecalciferol [Vitamin D3 (25 Mcg = 1000 Iu)] 25 mcg PO DAILY 12/11/21 Citalopram Hydrobromide [CeleXA] 40 mg PO HS 12/11/21 Magnesium Oxide [Magox 400] 400 mg PO HS 12/11/21 Furosemide [Lasix] 40 mg PO DAILY 12/19/23 NIFEdipine XL [Procardia XL] 60 mg PO HS 02/17/24 Cefdinir [Omnicef] 300 mg PO Q12HR 03/09/24 Doxycycline Hyclate 100 mg PO Q12H 03/09/24 Leucovorin 5 mg PO TU 03/09/24 Metoprolol Succinate (ER) [Toprol XL] 25 mg PO BID 03/09/24 Rosuvastatin Calcium [Crestor] 40 mg PO HS 03/09/24 Sacubitril/Valsartan [Entresto 49 mg-51 mg Tablet] 1 tab PO BID 03/09/24 metHOTREXate sodium [Methotrexate] 20 mg PO MO@2100 03/09/24 Furosemide [Lasix] 40 mg PO HS #4 tablet 03/10/24 HYDROcodone/APAP 5-325MG [[place] 5-325] 1 - 2 each PO Q6HR PRN #20 tab 03/10/24 Controlled Substance Measures - Controlled Substance Measures Is patient prescribed a controlled substance at discharge?: No
[2024-03-24 13:35] VITALS: BP 118/65; PULSE 16; RESP 15; TEMP 98.1
== END ==
LOC: PNWHC3 12:37
PROVIDERS: ATTEND Specialist
DX: M51.37 Other intervertebral disc degeneration, lumbosacral region (principal); M48.061 Spinal stenosis, lumbar region without neurogenic claudication; Z88.2 Allergy status to sulfonamides; Z88.1 Allergy status to other antibiotic agents
CPT/HCPCS: 99211